=== PATIENT | male | born 1925 | race Caucasian/White ===

== ENCOUNTER → 2016-05-20 | Outpatient (CLI) | payer BC ==
[~2016-05-20] MED LIST: ACET-1256 PO; B-COCAP2 PO; BECL1AER5 NAE; BIMA0.01 OPB; CALC1TAB9 PO; CHOL100010 PO; CMD6 PO; FRS/40 PO; MAGN400T6 PO; POTA20TA16 PO; SIMV20TA2 PO; UBIQ1CAP8 PO; [UNRECOGNIZED DRUG - CODE] TOP
[2016-05-20 13:23] LABS: BASO % 0.2 %; BASO ABS # 0.01 K/uL (0-0.2); COMPLETE YES; EOS % 4.7 %; HEMATOCRIT 38.4 % (42-52); LYMPH % 36.4 %; LYMPH ABS # 1.95 K/uL (1.2-3.4); MEAN CELL VOLUME 93.4 fL (80-100); MEAN CORPUSCULAR HEMOGLOBIN 32.4 pg (25-34); MEAN CORPUSCULAR HGB CONC 34.6 g/dl (32-36); MONO % 9.9 %; NEUT % 48.8 %; PLATELET COUNT 125 K/uL (130-400); RED BLOOD COUNT 4.11 M/uL (4.7-6.1); WHITE BLOOD COUNT 5.36 K/uL (4.8-10.8)
[2016-05-20 13:33] LABS: ESTIMATED AVERAGE GLUCOSE 111 mg/dl; HA1C FLAG Normal (Normal)
[2016-05-20 13:50] LABS: ALT/SGPT 31 U/L (12-78); AST/SGOT 28 U/L (15-37); BLOOD UREA NITROGEN 27 mg/dl (7-18); BUN/CREATININE RATIO 16.1 (10-20); CALCIUM 8.6 mg/dl (8.5-10.1); CARBON DIOXIDE 27 mmol/L (21-32); CHLORIDE 110 mmol/L (98-107); CHOLESTEROL 101 mg/dl (0-200); GLUCOSE 73 mg/dl (70-99); SODIUM 145 mmol/L (136-145)
[2016-05-20 13:59] LABS: ALB/GLOB RATIO 1.2 (0.9-2); ALKALINE PHOSPHATASE 72 U/L (45-117); CHOLESTEROL/HDL RATIO 2.3; HDL CHOLESTEROL 44 mg/dl; LDL CHOLESTEROL CALCULATED 47 mg/dl; TRIGLYCERIDES 52 mg/dl (0-150); VERY LOW DENSITY LIPOPROT CALC 10 mg/dl
[2016-05-23 10:23] LABS: C-REACTIVE PROT HIGHSEN 0.6 MG/L
--- NOTE | 2016-05-25 09:52 | CODING QUERY MEDICAL NECESSITY ---
SUPPORTING DIAGNOSIS NEEDED A supporting diagnosis is required for the test/procedure performed on this patient in order for us to be reimbursed by the patient's insurance. Please provide a supporting diagnosis for the following test/procedure listed below next to the test name along with your signature. *If there is no additional diagnosis for this patient that would support the following test/procedure please document that below next to the test/procedure. Test(s)/Procedure(s) that require a supporting diagnosis: DOS 05/20 * Vitamin D DIAGNOSIS: * Vitamin B12 DIAGNOSIS: * TSH DIAGNOSIS: * CRP DIAGNOSIS: Provider Signature: Date: Thank you Bonnie Porter Health Information Management Once completed, please kindly fax back to [phone] For questions please call [phone]
== END | disposition home or self-care (01) ==
LOC: C.LAB 13:00
PROVIDERS: ATTEND Family Medicine
DX: R73.09 Other abnormal glucose (principal); E55.9 Vitamin D deficiency, unspecified; D51.9 Vitamin B12 deficiency anemia, unspecified; I42.9 Cardiomyopathy, unspecified

== ENCOUNTER → 2017-02-26 | Outpatient (CLI) | payer BC ==
[~2017-02-26] MED LIST changes: -BECL1AER5 NAE
[2017-02-26 17:06] LABS: BLOOD UREA NITROGEN 31 mg/dl (7-18); BUN/CREATININE RATIO 16.9 (10-20); CARBON DIOXIDE 29 mmol/L (21-32); CHLORIDE 108 mmol/L (98-107); CREATININE 1.86 mg/dl (0.60-1.40); GLUCOSE 88 mg/dl (70-99); SODIUM 142 mmol/L (136-145)
== END | disposition home or self-care (01) ==
LOC: C.LAB1850 14:29
PROVIDERS: ATTEND Internal Medicine Cardiovascular Disease
DX: I50.9 Heart failure, unspecified (principal)

== ENCOUNTER 2017-06-07 21:00 | Emergency (ER) | payer BC ==
[~2017-06-07] VITALS: Ht 182.9 cm; Wt 83.6 kg
[2017-06-07 21:04] VITALS: Ht 182.9 cm; Wt 83.6 kg
[2017-06-07] MEDS ORDERED: CEFAZOLIN SOD 1000MG/7.5 ML IV PUSH IV STA (21:25)
[2017-06-07 21:54] LABS: BASO % 0.1 %; BASO ABS # 0.01 K/uL (0-0.2); EOS ABS # 0.07 K/uL (0-0.5); HEMOGLOBIN 13.4 g/dL (14.0-18.0); IG# 0.02 K/uL (0.00-0.02); LYMPH % 32.9 %; LYMPH ABS # 2.38 K/uL (1.2-3.4); MEAN CELL VOLUME 94.9 fL (80-100); MEAN CORPUSCULAR HEMOGLOBIN 32.6 pg (25-34); MEAN CORPUSCULAR HGB CONC 34.4 g/dl (32-36); MEAN PLATELET VOLUME 9.6 fL (7.4-10.4); MONO % 8.7 %; MONO ABS # 0.63 K/uL (0.11-0.59); NEUT ABS # 4.12 K/uL (1.4-6.5); PLATELET COUNT 149 K/uL (130-400); RED CELL DISTRIBUTION WIDTH CV 14.3 % (11.5-14.5); RED CELL DISTRIBUTION WIDTH SD 49.7 fL (36.4-46.3); WHITE BLOOD COUNT 7.23 K/uL (4.8-10.8)
[2017-06-07] MEDS ORDERED: CMD6 PO (22:16)
[2017-06-07] MEDS ORDERED: CHOL1000 PO (22:18)
[2017-06-07] MEDS ORDERED: MAGN500T4 PO (22:20)
[2017-06-07] MEDS ORDERED: B-CO-25 PO (22:22)
[2017-06-07 22:24] LABS: CREATININE 1.68 mg/dl (0.60-1.40)
[2017-06-07 22:25] LABS: CALCIUM 9.1 mg/dl (8.5-10.1); POTASSIUM 3.3 mmol/L (3.5-5.1)
[2017-06-07] MEDS ORDERED: IRBE-37 PO (22:25)
[2017-06-07] MEDS ORDERED: TRMCR115 TOP (22:29)
[2017-06-07] MEDS ORDERED: FLUT0.15 NAE (22:31)
[2017-06-07] MEDS ORDERED: CEPH500C PO (23:02)
--- NOTE | 2017-06-07 23:02 | EMERGENCY ROOM VISIT NOTE ---
History Report prepared by Nabeel: Ashok Cooper Under the Supervision of: Anshul Galaviz.O. First contact with patient: 21:20 Chief Complaint: SWELLING TO EXTREMITY Stated Complaint: SWELLING R AKLE AND REDNESS REFERRED BY MD History of Present Illness The patient is an 89 year old male who presents to the Emergency Room with complaints of persistent right leg infection since this morning. He states that he noticed the discoloration on his right leg this morning. He was seen at [facility] and the doctor there told him he had "blood poisoning." He denies any fevers. He denies scratching his right leg. He denies any DM. Source of History: patient Onset: since this morning Position: leg (right) Quality: other (infection) Timing: other (persistent) Associated Symptoms: No fevers Review of Systems See HPI for pertinent positives & negatives. A total of 10 systems reviewed and were otherwise negative. 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 Family History FH: asthma FH: lung disease Social History Smoking Status: Never Smoker Smokeless Tobacco Use: No Alcohol Use: none Drug Use: none Marital Status: Housing Status: lives with significant other Occupation Status: retired Current/Historical Medications Scheduled Acetaminophen (Tylenol), 500-650 MG PO PRN B-Complex W/ Folic Acid (Super B Complex Maxi), 1 TAB PO DAILY Bimatoprost (Lumigan), 1 DROP OPB HS Calcium Citrate-Vitamin D (Citracal + D3 Maximum), 600 MG PO DAILY Cephalexin Monohydrate (Keflex), 500 MG PO QID Cholecalciferol (Vitamin D3), 1,000 UNITS PO DAILY Fluticasone Propionate (Nasal) (Flonase Allergy Relief), 2 SPRAY LISA HS Irbesartan (Avapro), 1 TAB PO DAILY Magnesium Oxide (Mg Supplement (Magnesium), 500 MG PO DAILY Potassium Ext Rel (Klor-Con), 20-40 MEQ PO UD Simvastatin (Zocor), 20 MG PO QAM Ubiquinol (Ubiquinol), 100 MG PO DAILY Warfarin Sod (Coumadin), 6 MG PO DAILY Scheduled PRN Furosemide (Lasix), 40 MG PO DAILY PRN for fluid retention Triamcinolone Acet (Triamcinolone Acetonide), 1 APPLN TOP DAILY PRN for Itching Allergies Coded Allergies: Rofecoxib (Verified Allergy, Severe, hyperventalation, 06/07/17) Prednisone (Verified Allergy, Unknown, unknown, 06/07/17) Sulfa Drugs (Verified Adverse Reaction, Unknown, FACE DISTORTION 35 YRS AGO, 06/07/17) Physical Exam Vital Signs Date Time Temp Pulse Resp B/P (MAP) Pulse Ox O2 Delivery O2 Flow Rate FiO2 06/07/17 23:31 36.8 66 16 128/76 97 06/07/17 23:11 66 18 128/74 97 Room Air 06/07/17 22:06 82 16 134/68 98 Room Air 06/07/17 21:04 36.6 89 18 145/84 94 Room Air Physical Exam CONSTITUTIONAL/VITAL SIGNS: Reviewed / noted above. GENERAL: Non-toxic in appearance. INTEGUMENTARY: Warm, dry, and [place]. HEAD: Normocephalic. EYES: without scleral icterus or trauma. ENT/OROPHARYNX: clear and moist. LYMPHADENOPATHY/NECK: Is supple without lymphadenopathy or meningismus. RESPIRATORY: Lungs clear and equal. CARDIOVASCULAR: Regular rate and rhythm. GI/ABDOMEN: Soft and nontender. No organomegaly or pulsatile mass. No rebound or guarding. Normal bowel sounds. EXTREMITIES: Warm and well perfused. Right leg: mild erythema just superior to right ankle. Increased warmth and mild swelling. There is a small flesh wound to the superior aspect of the erythematous area. BACK: No CVA tenderness. NEUROLOGICAL: Intact without focal deficits. PSYCHIATRIC: normal affect. MUSCULOSKELETAL: Normally developed with good muscle tone. Medical Decision & Procedures Laboratory Results 06/07/17 21:42 Red Blood Count 4.11, Mean Corpuscular Volume 94.9, Mean Corpuscular Hemoglobin 32.6, Mean Corpuscular Hemoglobin Concent 34.4, Mean Platelet Volume 9.6, Neutrophils (%) (Auto) 57.0, Lymphocytes (%) (Auto) 32.9, Monocytes (%) (Auto) 8.7, Eosinophils (%) (Auto) 1.0, Basophils (%) (Auto) 0.1, Neutrophils # (Auto) 4.12, Lymphocytes # (Auto) 2.38, Monocytes # (Auto) 0.63, Eosinophils # (Auto) 0.07, Basophils # (Auto) 0.01 06/07/17 21:42 Test 06/07/17 21:42 White Blood Count 7.23 K/uL (4.8-10.8) Red Blood Count 4.11 M/uL (4.7-6.1) Hemoglobin 13.4 g/dL (14.0-18.0) Hematocrit 39.0 % (42-52) Mean Corpuscular Volume 94.9 fL (80-100) Mean Corpuscular Hemoglobin 32.6 pg (25-34) Mean Corpuscular Hemoglobin Concent 34.4 g/dl (32-36) Platelet Count 149 K/uL (130-400) Mean Platelet Volume 9.6 fL (7.4-10.4) Neutrophils (%) (Auto) 57.0 % Lymphocytes (%) (Auto) 32.9 % Monocytes (%) (Auto) 8.7 % Eosinophils (%) (Auto) 1.0 % Basophils (%) (Auto) 0.1 % Neutrophils # (Auto) 4.12 K/uL (1.4-6.5) Lymphocytes # (Auto) 2.38 K/uL (1.2-3.4) Monocytes # (Auto) 0.63 K/uL (0.11-0.59) Eosinophils # (Auto) 0.07 K/uL (0-0.5) Basophils # (Auto) 0.01 K/uL (0-0.2) RDW Standard Deviation 49.7 fL (36.4-46.3) RDW Coefficient of Variation 14.3 % (11.5-14.5) Immature Granulocyte % (Auto) 0.3 % Immature Granulocyte # (Auto) 0.02 K/uL (0.00-0.02) Anion Gap 7.0 mmol/L (3-11) Est Creatinine Clear Calc Drug Dose 32.7 ml/min Estimated GFR () 41.1 Estimated GFR (Non- 35.5 BUN/Creatinine Ratio 14.9 (10-20) Calcium Level 9.1 mg/dl (8.5-10.1) Laboratory results as stated above per my review. Medications Administered Medications (Trade) Dose Ordered Sig/Gustavo Route Start Time Stop Time Status Last Admin Dose Admin Cefazolin Sodium (Cefazolin 1000mg Iv Push) 2,000 mg NOW STAT IV 06/07/17 21:25 06/07/17 21:33 DC 06/07/17 21:53 2,000 MG ED Course 2121: Previous medical records were reviewed. The patient was evaluated in room C12A. A complete history and physical examination was performed. 2134: Ordered Cefazolin Sodium 2,000 mg IV 2305: I reassessed the patient at this time. I discussed the results and treatment plan with the patient. I answered all pertaining questions that he had. He expressed understanding and verbalized agreement. The patient will be discharged home. Medical Decision Prior records reviewed and summarized as above. Triage Nursing notes reviewed. The patient's history was concerning for swelling and redness of the skin. Differential diagnosis: Etiologies such as cellulitis, abscess, MRSA infection, DVT, necrotizing fasciitis, dermatitis, drug eruption, as well as others were entertained.. This is an 89-year-old male who presents to the ED with some swelling to his right ankle. He was sent from at [facility] for concerns about infection. The patient has some erythema in the right ankle region medially and anteriorly. The superior aspect contains a small scratch or scrape. He states that his symptoms started about 6 hours ago. He has not had any systemic symptoms. The patient's blood work was unremarkable other than some renal insufficiency. The patient was given IV Ancef and discharged on Keflex. He was told to follow-up with his PCP. Medication Reconcilliation Current Medication List: was personally reviewed by me Blood Pressure Screening Patient's blood pressure: Elevated blood pressure Blood pressure disposition: Elevated BP felt to be situational Impression Primary Impression: Cellulitis, leg Scribe Attestation The scribe's documentation has been prepared under my direction and personally reviewed by me in its entirety. I confirm that the note above accurately reflects all work, treatment, procedures, and medical decision making performed by me. Departure Information Dispostion Home / Self-Care Prescriptions Cephalexin Monohydrate (Keflex) 500 Mg Cap 500 MG PO QID, #40 CAP Prov: Neftaly Kimball D.O. 06/07/17 Referrals Pandolph, Cyril J.,M.D. (PCP) Forms HOME CARE DOCUMENTATION FORM, IMPORTANT VISIT INFORMATION, WORK / SCHOOL INSTRUCTIONS Patient Instructions My [facility] Additional Instructions Follow-up with your doctor for further care and evaluation in 1-2 days. Return to the emergency department for worsening or new symptoms or any concerns. You have been examined and treated today on an emergency basis only. This is not a substitute for, or an effort to provide, complete comprehensive medical care. It is impossible to recognize and treat all injuries or illnesses in a single emergency department visit. It is therefore important that you follow up closely with your doctor. Call as soon as possible for an appointment. Keflex as prescribed.
[2017-06-07 23:31] VITALS: BP 128/76; PULSE 66; TEMP 36.8; O2SAT 97
== END 2017-06-07 23:25 | disposition home or self-care (01) ==
LOC: C.EDB 21:02 → C.EDC 23:25
DX: L03.115 Cellulitis of right lower limb (principal); I48.91 Unspecified atrial fibrillation; N18.9 Chronic kidney disease, unspecified; Z82.5 Family history of asthma and other chronic lower respiratory diseases; Z79.01 Long term (current) use of anticoagulants; Z51.81 Encounter for therapeutic drug level monitoring; Z88.8 Allergy status to other drugs, medicaments and biological substances

== ENCOUNTER → 2017-06-11 | Outpatient (CLI) | payer BC ==
[~2017-06-11] MED LIST changes: +B-CO-25 PO; -B-COCAP2 PO; +CEPH500C PO; +CHOL1000 PO; -CHOL100010 PO; +FLUT0.15 NAE; +IRBE-37 PO; -MAGN400T6 PO; +MAGN500T4 PO; +TRMCR115 TOP; -[UNRECOGNIZED DRUG - CODE] TOP
[2017-06-11 14:38] LABS: BASO % 0.1 %; BASO ABS # 0.01 K/uL (0-0.2); EOS ABS # 0.07 K/uL (0-0.5); HEMATOCRIT 36.6 % (42-52); HEMOGLOBIN 12.5 g/dL (14.0-18.0); IG# 0.01 K/uL (0.00-0.02); LYMPH % 38.5 %; LYMPH ABS # 2.57 K/uL (1.2-3.4); MEAN CELL VOLUME 97.1 fL (80-100); MEAN CORPUSCULAR HEMOGLOBIN 33.2 pg (25-34); MEAN CORPUSCULAR HGB CONC 34.2 g/dl (32-36); MEAN PLATELET VOLUME 10.4 fL (7.4-10.4); MONO % 9.1 %; MONO ABS # 0.61 K/uL (0.11-0.59); NEUT % 51.2 %; PLATELET COUNT 141 K/uL (130-400); RED CELL DISTRIBUTION WIDTH CV 14.2 % (11.5-14.5); RED CELL DISTRIBUTION WIDTH SD 50.8 fL (36.4-46.3); WHITE BLOOD COUNT 6.67 K/uL (4.8-10.8)
[2017-06-11 15:22] LABS: ALBUMIN 3.4 gm/dl (3.4-5.0); ALKALINE PHOSPHATASE 66 U/L (45-117); ALT/SGPT 22 U/L (12-78); AST/SGOT 24 U/L (15-37); BLOOD UREA NITROGEN 27 mg/dl (7-18); CALCIUM 8.8 mg/dl (8.5-10.1); CARBON DIOXIDE 31 mmol/L (21-32); CHOLESTEROL 102 mg/dl (0-200); CREATININE 1.61 mg/dl (0.60-1.40); GLUCOSE 75 mg/dl (70-99); POTASSIUM 3.6 mmol/L (3.5-5.1); SODIUM 141 mmol/L (136-145); TOTAL PROTEIN 6.5 gm/dl (6.4-8.2); TRANSFERRIN 278 mg/dl (200-360); URIC ACID 6.4 mg/dl (2.6-7.2)
[2017-06-11 15:31] LABS: LDL CHOLESTEROL CALCULATED 47 mg/dl
[2017-06-12 07:16] LABS: HEMOGLOBIN A1C 5.6 % (4.5-5.6)
== END | disposition home or self-care (01) ==
LOC: C.LAB 12:55
PROVIDERS: ATTEND Family Medicine
DX: R73.09 Other abnormal glucose (principal); E55.9 Vitamin D deficiency, unspecified; D51.9 Vitamin B12 deficiency anemia, unspecified; E78.9 Disorder of lipoprotein metabolism, unspecified; R53.83 Other fatigue

== ENCOUNTER → 2017-06-27 | Outpatient (CLI) | payer BC ==
--- NOTE | 2017-06-27 13:56 | DIAGNOSTIC IMAGING REPORT ---
RIGHT LOWER EXTREMITY VENOUS DOPPLER CLINICAL HISTORY: Right lower extremity pain and swelling. COMPARISON STUDY: Right lower extremity venous Doppler September 16 2007. TECHNIQUE: Sonography of the deep venous system of the right lower extremity was performed. Compression and augmentation were evaluated. FINDINGS: The common femoral, superficial femoral and popliteal veins were compressible. Augmentation was normal. Flow was shown within the deep calf vessels. Right calf edema was noted. No discrete fluid collection was identified. IMPRESSION: No evidence of deep venous thrombus within the right lower extremity. Electronically signed by: Ab Lang M.D. 06/27/2017 1:55 PM Dictated Date/Time: 06/27/2017 1:54 PM
== END | disposition home or self-care (01) ==
LOC: C.ULTRBC 13:10
PROVIDERS: ATTEND Family Medicine
DX: M79.604 Pain in right leg (principal); M79.89 Other specified soft tissue disorders

== ENCOUNTER 2017-07-08 12:04 | Inpatient (IN) | payer BC, OTHER ==
[~2017-07-08] VITALS: Ht 182.9 cm; Wt 87.0 kg
[~2017-07-08 12:04] MED LIST changes: +POTA-639 PO; -POTA20TA16 PO
[2017-07-08 12:07] VITALS: Ht 182.9 cm; Wt 87.0 kg
[2017-07-08] MEDS ORDERED: DOXY100C41 PO (12:42)
[2017-07-08] MEDS ORDERED: CPR/500 PO (12:42)
[2017-07-08] MEDS ORDERED: PIPERACILLIN/TAZOBACTAM 4.5 GM/100ML D5W IV STA (12:59)
[2017-07-08] MEDS ORDERED: DAPTOmycin IV 522 MG in SODIUM CHLORIDE 0.9% 50ML 50 ML IV STA (12:59)
--- NOTE | 2017-07-08 13:04 | EMERGENCY ROOM VISIT NOTE ---
History Report prepared by Nabeel: Ramon Valadez Under the Supervision of: Dr. Neftaly Adam M.D. First contact with patient: 12:53 Chief Complaint: INFECTION Stated Complaint: INFECTION ON RIGHT ANKLE SPREAD ABOVE KNEE Nursing Triage Summary: Pt has right lower leg redness, swelling, and pain. Slightly warm to touch. Pt states he has been being treated for infection of right leg for awhile, taking Doxycycline and Cipro currently. Last week he had an US to rule out DVT which was negative. Takes Coumadin. History of Present Illness The patient is a 89 year old male who presents to the Emergency Room with complaints of a worsening right leg infection that began a month ago. The patient states that for the last month his leg has been erythematous, swollen, and painful. He reports that he saw his physician and has been placed on three antibiotics for the past month, including Doxycycline which he was placed on last week. He reports his PCP told him he would need a culture done if the antibiotics did not work. The patient states he also had an ultrasound done last week which was negative for DVT. He reports that his right leg worsened overnight and has spread above his knee. Source of History: patient Onset: a month ago Position: leg (right) Quality: other (erythema) Timing: worsening Modifying Factors (Relieving): other ( Doxycycline) Note: Associated symptoms: right leg swelling, right leg pain, right leg warmth. Review of Systems See HPI for pertinent positives & negatives. A total of 10 systems reviewed and were otherwise negative. 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 Family History FH: asthma FH: lung disease Social History Smoking Status: Never Smoker Alcohol Use: none Drug Use: none Marital Status: Housing Status: lives with significant other Occupation Status: retired Current/Historical Medications Scheduled Acetaminophen (Tylenol), 500-650 MG PO PRN B-Complex W/ Folic Acid (Super B Complex Maxi), 1 TAB PO DAILY Bimatoprost (Lumigan), 1 DROP OPB HS Calcium Citrate-Vitamin D (Citracal + D3 Maximum), 600 MG PO DAILY Cephalexin Monohydrate (Keflex), 500 MG PO QID Cholecalciferol (Vitamin D3), 1,000 UNITS PO DAILY Ciprofloxacin (Ciprofloxacin HCl), 500 MG PO BID Doxycycline (Monohydrate) (Monodox), 100 MG PO BID Fluticasone Propionate (Nasal) (Flonase Allergy Relief), 2 SPRAY LISA HS Irbesartan (Avapro), 1 TAB PO DAILY Magnesium Oxide (Mg Supplement (Magnesium), 500 MG PO DAILY Potassium Ext Rel (Klor-Con), 20-40 MEQ PO UD Simvastatin (Zocor), 20 MG PO QAM Ubiquinol (Ubiquinol), 100 MG PO DAILY Warfarin Sod (Coumadin), 6 MG PO DAILY Scheduled PRN Furosemide (Lasix), 40 MG PO DAILY PRN for fluid retention Triamcinolone Acet (Triamcinolone Acetonide), 1 APPLN TOP DAILY PRN for Itching Allergies Coded Allergies: Rofecoxib (Verified Allergy, Severe, hyperventalation, 07/08/17) Prednisone (Verified Allergy, Unknown, unknown, 07/08/17) Sulfa Drugs (Verified Adverse Reaction, Unknown, FACE DISTORTION 35 YRS AGO, 07/08/17) Physical Exam Vital Signs Date Time Temp Pulse Resp B/P (MAP) Pulse Ox O2 Delivery O2 Flow Rate FiO2 07/08/17 17:23 73 16 131/87 93 07/08/17 17:01 131/87 07/08/17 17:00 73 16 93 Room Air 07/08/17 16:31 129/78 07/08/17 16:30 65 14 94 Room Air 07/08/17 16:06 64 16 129/76 94 Room Air 07/08/17 15:02 57 20 129/72 92 Room Air 07/08/17 14:26 49 07/08/17 14:25 Room Air 07/08/17 14:12 69 20 120/68 94 Room Air 07/08/17 12:07 36.3 77 18 122/76 96 Room Air Physical Exam GENERAL: Awake, alert, well-appearing, in no acute distress HENT: Normocephalic, atraumatic. Oropharynx unremarkable. EYES: Normal conjunctiva. Sclera non-icteric. NECK: Supple. No nuchal rigidity. FROM. No JVD. RESPIRATORY: Clear to auscultation. CARDIAC: Regular rate, normal rhythm. Extremities warm and well perfused. Pulses equal. ABDOMEN: Soft, non-distended. No tenderness to palpation. No rebound or guarding. No masses. RECTAL: Deferred. MUSCULOSKELETAL: Chest examination reveals no tenderness. The back is symmetrical on inspection without obvious abnormality. There is no CVA tenderness to palpation. No joint edema. LOWER EXTREMITIES: Area of cellulitis extending up right lower extremity about three [address] way up the thigh. Chronic venous stasis changes bilaterally. NEURO: Normal sensorium. No sensory or motor deficits noted. SKIN: No rash or jaundice noted. Medical Decision & Procedures ER Provider Diagnostic Interpretation: Radiology results as stated below per my review and radiologist interpretation: R VENOUS DOPP LOWER EXT UNILAT CLINICAL HISTORY: 89 years-old Male presenting with Pt c/o Rt LE swelling. TECHNIQUE: Real-time grayscale and color and spectral Doppler ultrasound imaging of the veins of the right lower extremity was performed. Compression and augmentation were also utilized. COMPARISON: 06/27/2017. FINDINGS: Right: Common femoral vein: Patent. Greater saphenous vein: Patent. Deep femoral vein: Patent. Femoral vein: Patent. Popliteal vein: Patent. Calf veins: Patent. Other: Significant lower extremity subcutaneous edema. IMPRESSION: 1. No evidence of deep venous thrombosis. 2. Significant subcutaneous edema. Electronically signed by: Martinez Nguyen M.D. 07/08/2017 3:33 PM Dictated Date/Time: 07/08/2017 3:32 PM Laboratory Results 07/08/17 13:30 Red Blood Count 3.81, Mean Corpuscular Volume 96.1, Mean Corpuscular Hemoglobin 31.8, Mean Corpuscular Hemoglobin Concent 33.1, Mean Platelet Volume 10.5, Neutrophils (%) (Auto) 49.8, Lymphocytes (%) (Auto) 39.1, Monocytes (%) (Auto) 8.6, Eosinophils (%) (Auto) 2.1, Basophils (%) (Auto) 0.3, Neutrophils # (Auto) 3.37, Lymphocytes # (Auto) 2.65, Monocytes # (Auto) 0.58, Eosinophils # (Auto) 0.14, Basophils # (Auto) 0.02 07/08/17 13:30 Test 07/08/17 13:30 White Blood Count 6.77 K/uL (4.8-10.8) Red Blood Count 3.81 M/uL (4.7-6.1) Hemoglobin 12.1 g/dL (14.0-18.0) Hematocrit 36.6 % (42-52) Mean Corpuscular Volume 96.1 fL (80-100) Mean Corpuscular Hemoglobin 31.8 pg (25-34) Mean Corpuscular Hemoglobin Concent 33.1 g/dl (32-36) Platelet Count 125 K/uL (130-400) Mean Platelet Volume 10.5 fL (7.4-10.4) Neutrophils (%) (Auto) 49.8 % Lymphocytes (%) (Auto) 39.1 % Monocytes (%) (Auto) 8.6 % Eosinophils (%) (Auto) 2.1 % Basophils (%) (Auto) 0.3 % Neutrophils # (Auto) 3.37 K/uL (1.4-6.5) Lymphocytes # (Auto) 2.65 K/uL (1.2-3.4) Monocytes # (Auto) 0.58 K/uL (0.11-0.59) Eosinophils # (Auto) 0.14 K/uL (0-0.5) Basophils # (Auto) 0.02 K/uL (0-0.2) RDW Standard Deviation 47.1 fL (36.4-46.3) RDW Coefficient of Variation 13.5 % (11.5-14.5) Immature Granulocyte % (Auto) 0.1 % Immature Granulocyte # (Auto) 0.01 K/uL (0.00-0.02) Prothrombin Time 21.5 SECONDS (9.0-12.0) Prothromb Time International Ratio 2.1 (0.9-1.1) Anion Gap 5.0 mmol/L (3-11) Est Creatinine Clear Calc Drug Dose 30.4 ml/min Estimated GFR () 37.6 Estimated GFR (Non- 32.4 BUN/Creatinine Ratio 13.3 (10-20) Calcium Level 8.2 mg/dl (8.5-10.1) Total Bilirubin 0.9 mg/dl (0.2-1) Direct Bilirubin 0.2 mg/dl (0-0.2) Aspartate Amino Transf (AST/SGOT) 31 U/L (15-37) Alanine Aminotransferase (ALT/SGPT) 24 U/L (12-78) Alkaline Phosphatase 73 U/L (45-117) Total Protein 6.5 gm/dl (6.4-8.2) Albumin 3.4 gm/dl (3.4-5.0) Lipase 160 U/L (73-393) Labs reviewed by ED physician. Medications Administered Medications (Trade) Dose Ordered Sig/Gustavo Route Start Time Stop Time Status Last Admin Dose Admin Piperacillin Sod/ Tazobactam Sod (Zosyn Iv) 4.5 gm NOW STAT IV 07/08/17 12:59 07/08/17 13:04 DC 07/08/17 14:59 4.5 GM Daptomycin 522 mg/ Sodium Chloride 60.44 ml @ 100 mls/hr NOW STAT IV 07/08/17 12:59 07/08/17 13:35 DC 07/08/17 14:15 100 MLS/HR ECG Per My Interpretation Indication: other (cellulitis) Rate (beats per minute): 65 Rhythm: normal sinus Findings: other (No ST elevation or depression) ED Course 1255: Past medical records reviewed. The patient was evaluated in room B04B. A complete history and physical examination was performed. 1259: Ordered Daptomycin 522 mg/Sodium Chloride 60.44 ml @ 100 mls/hr IV, Zosyn 4.5 gm IV. 1512: I discussed the patient's case [facility] e [facility]ca[facility] the patient's condition and agrees to accept the patient. The patient will be further evaluated. 1518: I reevaluated the patient and updated him on his results. I discussed the treatment plan, which he understands and agrees to. The patient will be further evaluated. Medical Decision Prior records reviewed and summarized as above. Triage Nursing notes reviewed. The patient's history was concerning for swelling and redness of the skin. Differential diagnosis: Etiologies such as cellulitis, abscess, MRSA infection, DVT, necrotizing fasciitis, dermatitis, drug eruption, as well as others were entertained. This is an 89-year-old male who presents emergency department after being on antibiotics 3 times in the past month for cellulitis of his right lower extremity. Today the cellulitis is worse and extends up past his knee. The patient was sent for an ultrasound of his leg which did not show any evidence of DVT. He has a therapeutic INR level. Because of the multiple antibiotic failures I did discuss the case with the attending agreed to admit the patient. Patient was given Zosyn and Daptomycin here in emergency department. Medication Reconcilliation Current Medication List: was personally reviewed by me Blood Pressure Screening Patient's blood pressure: Normal blood pressure Consults Time Called: 1508 Consulting Physician: Evan Barrera Hospitalist Returned Call: 1512 I discussed the patients case with Evan Barrera Hospitalist. He understands the patients condition and agrees to accept the patient. The patient will be further evaluated. Impression Primary Impression: Cellulitis Scribe Attestation The scribe's documentation has been prepared under my direction and personally reviewed by me in its entirety. I confirm that the note above accurately reflects all work, treatment, procedures, and medical decision making performed by me. Departure Information Dispostion Being Evaluated By Hospitalist Referrals Cyril Hardin M.D. (PCP) Patient Instructions My [facility] Problem Qualifiers Primary Impression: Cellulitis Site of cellulitis: extremity Site of cellulitis of extremity: lower extremity Laterality: right Qualified Codes: L03.115 - Cellulitis of right lower limb
[2017-07-08 14:15] LABS: BASO % 0.3 %; BASO ABS # 0.02 K/uL (0-0.2); EOS % 2.1 %; EOS ABS # 0.14 K/uL (0-0.5); HEMATOCRIT 36.6 % (42-52); HEMOGLOBIN 12.1 g/dL (14.0-18.0); IG# 0.01 K/uL (0.00-0.02); LYMPH % 39.1 %; LYMPH ABS # 2.65 K/uL (1.2-3.4); MEAN CELL VOLUME 96.1 fL (80-100); MEAN CORPUSCULAR HEMOGLOBIN 31.8 pg (25-34); MEAN CORPUSCULAR HGB CONC 33.1 g/dl (32-36); MEAN PLATELET VOLUME 10.5 fL (7.4-10.4); MONO % 8.6 %; MONO ABS # 0.58 K/uL (0.11-0.59); NEUT % 49.8 %; NEUT ABS # 3.37 K/uL (1.4-6.5); PLATELET COUNT 125 K/uL (130-400); RED CELL DISTRIBUTION WIDTH CV 13.5 % (11.5-14.5); RED CELL DISTRIBUTION WIDTH SD 47.1 fL (36.4-46.3); WHITE BLOOD COUNT 6.77 K/uL (4.8-10.8)
[2017-07-08 14:26] LABS: INR 2.1 (0.9-1.1)
[2017-07-08 14:35] LABS: ALBUMIN 3.4 gm/dl (3.4-5.0); CALCIUM 8.2 mg/dl (8.5-10.1); CREATININE 1.81 mg/dl (0.60-1.40); POTASSIUM 3.8 mmol/L (3.5-5.1)
[2017-07-08 14:38] LABS: TOTAL PROTEIN 6.5 gm/dl (6.4-8.2)
--- NOTE | 2017-07-08 15:34 | DIAGNOSTIC IMAGING REPORT ---
R VENOUS DOPP LOWER EXT UNILAT CLINICAL HISTORY: 89 years-old Male presenting with Pt c/o Rt LE swelling. TECHNIQUE: Real-time grayscale and color and spectral Doppler ultrasound imaging of the veins of the right lower extremity was performed. Compression and augmentation were also utilized. COMPARISON: 06/27/2017. FINDINGS: Right: Common femoral vein: Patent. Greater saphenous vein: Patent. Deep femoral vein: Patent. Femoral vein: Patent. Popliteal vein: Patent. Calf veins: Patent. Other: Significant lower extremity subcutaneous edema. IMPRESSION: 1. No evidence of deep venous thrombosis. 2. Significant subcutaneous edema. Electronically signed by: Martinez Nguyen M.D. 07/08/2017 3:33 PM Dictated Date/Time: 07/08/2017 3:32 PM
[2017-07-08] MEDS ORDERED: ACETAMINOPHEN 325 MG TAB PO PRN (16:30)
[2017-07-08] MEDS ORDERED: POLYETHYLENE (MIRALAX) 17 GM PACK PO PRN (16:30)
[2017-07-08] MEDS ORDERED: HEPARIN SOD 5000 UNIT/0.5 ML CARP SQ SCH (16:30)
[2017-07-08] MEDS ORDERED: ONDANSETRON INJ 2 MG/ML 2 ML VIAL IV PRN (16:30)
[2017-07-08] MEDS ORDERED: TRIAMCINOLONE ACET 0.1% CR 15 GM TUBE EXT PRN (16:30)
[2017-07-08] MEDS ORDERED: VANCOMYCIN CONSULT ACTIVE PRN (16:30)
[2017-07-08] MEDS ORDERED: PIPERACILL/TAZOBAC CONSULT ACTIVE PRN (16:30)
[2017-07-08] MEDS ORDERED: ALUMINUM/MAGNESIUM/SIMETH (MAALOX MAX) 30 ML UDC PO PRN (16:30)
[2017-07-08 17:00] VITALS: O2SAT 93
[2017-07-08 18:36] VITALS: BP_SYST 145; BP_SYST 166; BP_DIAS 82; BP_DIAS 85; PULSE 69; TEMP 36.5; O2SAT 98
--- NOTE | 2017-07-08 18:44 | HISTORY & PHYSICAL EXAMINATION ---
DATE OF ADMISSION: 07/08/2017 CHIEF COMPLAINT: Right lower extremity cellulitis, failed outpatient treatment. HISTORY OF PRESENT ILLNESS: An 89-year-old male with past medical history significant for hypertension, sensorineural hearing loss, sleep apnea, hyperlipidemia, CAD status post CABG, presents with right lower extremity cellulitis for last three weeks. The patient says he took three different kinds of antibiotics since last three to four weeks, but it is not working. Yesterday, the erythema has gone up to his thigh, so he came to the ER. He says his leg is slightly warm and swollen, but denies any tenderness. He is able to walk and he also goes to gym couple of times a week and he is doing okay with exercise, but redness is not getting better. He got worried and came to the hospital. Denies any fever, chills. Denies any headaches. No blurred vision. No ear drainage. No nasal drainage. No sore throat. No difficulty swallowing. No chest pain. No shortness of breath. No cough. No nausea. No vomiting. No abdominal pain. Normal bowel and bladder movements. No blood in the urine. No blood in the stools. No black stools. No rash anywhere else. Sleep is okay. Ambulates without any help. Vision is okay and uses hearing aids. Currently, resting comfortable and hemodynamically stable. ALLERGIES: ROFECOXIB, PREDNISONE AND SULFA ANTIBIOTICS. PAST MEDICAL HISTORY: As mentioned above. PAST SURGICAL HISTORY: Open heart CABG, sinus surgery. FAMILY HISTORY: Significant for father had asthma and glaucoma. Mother has heart disorder. SOCIAL HISTORY: Never smoked. Wine occasional. No drug use. Currently lives alone. REVIEW OF SYMPTOMS: As per HPI. Rest of review of systems negative. MEDICATIONS: At home: The patient currently on Tylenol 500-650 mg p.o. p.r.n., Keflex 500 mg p.o. q.i.d., Cipro 500 mg p.o. b.i.d., Lasix 40 mg p.r.n., Klor-Con 20 mEq when taking with Lasix, docusate 10 mg p.o. b.i.d., [id number] mg p.o. daily, B complex tablets daily, Lumigan 0.01% ophthalmic solution q.h.s., Citracal one tablet daily, vitamin D 1000 units p.o. daily, Flonase two sprays h.s., Avapro 75 mg one tablet daily, magnesium oxide 500 mg p.o. daily, Zocor 20 mg p.o. q.p.m., and Warfarin 6 mg p.o. daily. PHYSICAL EXAMINATION: GENERAL: The patient is of moderate build, not in distress. VITAL SIGNS: Temperature 36.3, pulse 64, respiratory rate 16, blood pressure 129/76, oxygen 94% room air. HEENT: No pallor. No icterus. Pupils equal, round, reactive to light. NECK: No JVD, no neck masses, no carotid bruits. CARDIOVASCULAR: S1, S2 heard, regular rate and rhythm, no murmur, no gallop. RESPIRATORY SYSTEM: Normal AP diameter. No accessory muscle use. No wheezing, no crackles. ABDOMEN: Soft, bowel sounds present. Nontender. No distention. CENTRAL NERVOUS SYSTEM: Cranial nerves II-XII are grossly intact. Nonfocal. EXTREMITIES: Right lower extremity, slightly swollen, erythematous and warm on palpation. Bilateral lower extremity pedal edema present. LABS: Sodium 143, potassium 3.8, chloride 109, bicarbonate 29, BUN 24, creatinine 1.8, serum glucose 94, calcium 8.2, total bilirubin 0.9, direct bilirubin 0.2, AST 31, ALT 24, alkaline phosphatase 73. WBC 6.7, hemoglobin 12.1, hematocrit 36.6, platelets 125. INR 2.1. Lower extremity Doppler, no DVT. EKG shows marked AFib at a rate of 65, nonspecific T abnormalities seen. ASSESSMENT AND PLAN: This is an 89-year-old male who presents with right lower extremity cellulitis. 1. Right lower extremity cellulitis going on for last three weeks, failed outpatient treatment with p.o. antibiotics with Cipro, Keflex and doxycycline. We will start him on IV vancomycin and IV Zosyn and follow the blood cultures and follow the response. Monitor on the medical floor. 2. History of coronary artery disease status post coronary artery bypass surgery. Continue his statin, not on aspirin or beta blockers. On ARBs. 3. History of chronic systolic and diastolic heart failure. The previous EF was 30%. The patient is on Lasix as needed and ARBs. We will monitor for any volume overload. Follows with Cardiology every six months. Last time since seen Cardiology two months ago. 4. History of hyperlipidemia. Continue statin. 5. History of atrial fibrillation. Rate under control. Not on any rate-controlling medications. On Coumadin. INR is 2.1. 6 Deep venous thrombosis prophylaxis, on Coumadin. 7. Disposition: Admit to medical floor. Expect discharge home and follow up with family doctor. PT and OT prior to discharge. Social Service to help with discharge planning. Level 1 full code only in the case of chance of recovery. MTDD
[2017-07-08] MEDS: BIMATOPROST 0.01% OP SOLN 2.5 ML BTL OPB SCH (20:35)
[2017-07-08] MEDS: SIMVASTATIN 20 MG TAB PO SCH (20:36)
[2017-07-08] MEDS: FLUTICASONE PROPIONATE NA SPR 16 GM BTL NAE SCH (20:36)
[2017-07-08] MEDS: PIPERACILL/TAZOBAC IV 3.375 GM in NSS 100ML IV SCH (20:44)
[2017-07-08] MEDS ORDERED: PIPERACILL/TAZOBAC IV 3.375 GM in DEXTROSE 5% 100ML 100 ML IV SCH (22:00)
[2017-07-08 23:31] VITALS: BP 134/75; PULSE 66; TEMP 36.4; O2SAT 94
[2017-07-09] MEDS ORDERED: VANCOMYCIN IV 1,750 MG in SODIUM CHLORIDE 0.9% 500ML 500 ML IV SCH ×2
[2017-07-09] MEDS: PIPERACILL/TAZOBAC IV 3.375 GM in NSS 100ML IV SCH ×3 (03:30→19:24)
[2017-07-09 05:45] LABS: HEMATOCRIT 34.5 % (42-52); HEMOGLOBIN 11.5 g/dL (14.0-18.0); MEAN CELL VOLUME 95.6 fL (80-100); MEAN CORPUSCULAR HEMOGLOBIN 31.9 pg (25-34); MEAN CORPUSCULAR HGB CONC 33.3 g/dl (32-36); PLATELET COUNT 109 K/uL (130-400); RED CELL DISTRIBUTION WIDTH CV 13.4 % (11.5-14.5); RED CELL DISTRIBUTION WIDTH SD 46.8 fL (36.4-46.3); WHITE BLOOD COUNT 7.71 K/uL (4.8-10.8)
[2017-07-09 05:57] LABS: INR 2.3 (0.9-1.1)
[2017-07-09 06:06] LABS: CALCIUM 8.1 mg/dl (8.5-10.1); CREATININE 1.88 mg/dl (0.60-1.40); POTASSIUM 3.8 mmol/L (3.5-5.1)
[2017-07-09 07:15] VITALS: BP 126/63; PULSE 66; TEMP 36.7; O2SAT 96
[2017-07-09 08:00] VITALS: O2SAT 96
[2017-07-09] MEDS: CHOLECALCIFEROL 400 INTER.UNIT TAB PO SCH (08:20)
[2017-07-09] MEDS: CHOLECALCIFEROL 1000 INTER.UNIT TAB PO SCH (08:20)
[2017-07-09] MEDS: CALCIUM CITRATE 950 MG TAB PO SCH (08:21)
[2017-07-09] MEDS: MAGNESIUM OXIDE 400 MG TAB PO SCH (08:21)
[2017-07-09] MEDS: VITAMIN B COMPLEX TAB PO SCH (08:21)
--- NOTE | 2017-07-09 08:52 | Pharmacy Progress Note ---
Pharmacy Abx Initial Consult Date of Service Jul 09, 2017. Pharmacy Dosing Scope Date of Consult: 07-08 Consultation requested by: Dr. Montes De Oca [facility] is consulted to initiate vancomycin/zosyn dosing therapy, order appropriate labs and adjust drug dose/frequency. Subjective The patient is a 89 year old male admitted on Jul 08, 2017 at 16:31. Objective Height (Feet): 6 Height (Inches): 0 Weight (Kilograms): 87.000 Vital Signs (Past 12Hrs) Vital Signs Past 12 Hours Date Time Temp Pulse Resp B/P (MAP) Pulse Ox O2 Delivery O2 Flow Rate FiO2 07/09/17 07:15 36.7 66 18 126/63 (84) 96 Room Air 07/09/17 00:15 Room Air 07/08/17 23:31 36.4 66 18 134/75 (94) 94 Room Air Lab Results (24Hrs) Laboratory Tests (24 Hours) Test 07/08/17 13:30 07/09/17 05:32 White Blood Count 6.77 K/uL (4.8-10.8) 7.71 K/uL (4.8-10.8) Red Blood Count 3.81 M/uL (4.7-6.1) L 3.61 M/uL (4.7-6.1) L Hemoglobin 12.1 g/dL (14.0-18.0) L 11.5 g/dL (14.0-18.0) L Hematocrit 36.6 % (42-52) L 34.5 % (42-52) L Mean Corpuscular Volume 96.1 fL (80-100) 95.6 fL (80-100) Mean Corpuscular Hemoglobin 31.8 pg (25-34) 31.9 pg (25-34) Mean Corpuscular Hemoglobin Concent 33.1 g/dl (32-36) 33.3 g/dl (32-36) Platelet Count 125 K/uL (130-400) L 109 K/uL (130-400) L Mean Platelet Volume 10.5 fL (7.4-10.4) H 10.0 fL (7.4-10.4) Neutrophils (%) (Auto) 49.8 % Lymphocytes (%) (Auto) 39.1 % Monocytes (%) (Auto) 8.6 % Eosinophils (%) (Auto) 2.1 % Basophils (%) (Auto) 0.3 % Neutrophils # (Auto) 3.37 K/uL (1.4-6.5) Lymphocytes # (Auto) 2.65 K/uL (1.2-3.4) Monocytes # (Auto) 0.58 K/uL (0.11-0.59) Eosinophils # (Auto) 0.14 K/uL (0-0.5) Basophils # (Auto) 0.02 K/uL (0-0.2) Micro Results Date/Time Source Procedure Growth Status 07/08/17 13:39 Blood Blood Culture Pending Received 07/08/17 13:30 Blood Blood Culture Pending Received Risk Factors for Resistance * Antimicrobial use within the last 90 days * previously on ciprofloxacin, keflex, and doxycycline Assessment & Plan 89 year old male admitted with a recurrent lower extremity cellulitis going on for the last 3 weeks. Has been on po antibiotics (cipro,doxy,keflex). Blood cultures x 2 are pending. Plan: Vancomycin: * Pt received daptomycin x 1 in the ED 07/08 - received LD of vancomycin 1750 (~ 20 mg/kg) last evening around ~2300 * Will start maintenance dose of vancomycin 1250 (~14 mg/kg) iv q 24 hrs to achieve an estimated trough ~15 mcg/ml (goal for cellulitis) * Estimated kinetics: t1/2~24 hrs, ke~0.029 hr-1, CrCl ~30ml/min * Will plan to obtain a trough prior to the 2300 dose on 07/11 to ensure therapeutic - note, this will be before steady state however want to ensure pt is therapeutic Zosyn: * 4.5 gm iv x 1 (ED); 3.375 gm iv q 8 hrs - will continue with dosing ( appropriate for CrCl >20 ml/min) Pharmacy will continue to follow and will adjust dose/frequency as necessary. Thank you.
--- NOTE | 2017-07-09 12:51 | Clinical Documentation Query ---
CLINICAL DOCUMENTATION QUERY 89 yo male admitted with right lower cellulitis. Patient's history shows CKD, and GFR ranges 31.0 to 37.4. In your clinical opinion is this patient being managed for: (x ) Chronic kidney disease, stage 3 ( ) Not Agree ( ) Other explanation of clinical findings (Please Explain) ( ) Unable to determine (Please Define) ( ) Need to Discuss The medical record reflects the following clinical findings, treatment, and risk factors. Clinical Indicators: As above Treatment: Serial PRPs Risk Factors: Age, HTN, [place], CHF Please clarify and document your clinical opinion in the progress notes and discharge summary. Terms such as "probable", "suspected", "likely", "questionable", "possible", or "still to be ruled out" are acceptable. IF IN AGREEMENT, YOU MUST DOCUMENT ABOVE DIAGNOSTIC STATEMENT IN DAILY PROGRESS NOTES AND DISCHARGE SUMMARY. This document is not part of the patient's record. Thank You, Joan Paredes RN [phone]
[2017-07-09 15:03] VITALS: BP 123/85; PULSE 68; TEMP 36.4; O2SAT 96
--- NOTE | 2017-07-09 16:17 | Progress Note ---
Internal Med Progress Note Date of Service: Jul 09, 2017. Provider Documentation: SUBJECTIVE: resting comfortably ambulating fine erythema in leg improving afebrile no chest pain or sob no nausea feeling fine OBJECTIVE: Vital Signs-as noted below Exam: General-alert and oriented. Not in distress ENT-normal hearing. Neck-No neck masses Lungs-CTA b/l no wheezing or crackles Heart-S1 and S2 heard irregular rhythm no murmurs Abdomen-soft Bowels sounds present no tenderness present no distension Extremities-right leg erythema and mild swelling upto posterior aspect of thigh- improving Neuro-alert and oriented moves extremities Lab data as noted below. ASSESSMENT & PLAN: : This is an 89-year-old male who presents with right lower extremity cellulitis. 1. Right lower extremity cellulitis going on for last three weeks, failed outpatient treatment with p.o. antibiotics with Cipro, Keflex and doxycycline.Started on IV vancomycin and IV Zosyn#2. Improving. continue same.blood cx pending 2. History of coronary artery disease status post coronary artery bypass surgery. Continue his statin, not on aspirin or beta blockers. On ARBs.Stable. 3. History of chronic systolic and diastolic heart failure. The previous EF was 30%. The patient is on Lasix as needed and ARBs. We will monitor for any volume overload. Follows with Cardiology every six months. Last time since seen Cardiology two months ago.Stable. 4. History of hyperlipidemia. Continue statin. 5. History of atrial fibrillation. Rate under control. Not on any rate-controlling medications. On Coumadin. INR is 2.3. 6. CKD stage 3 baseline cr 1.6 to 1.8 will f/u labs 7. Deep venous thrombosis prophylaxis, on Coumadin. 8. Disposition: Monitor in medical floor. Expect discharge home and follow up with family doctor. PT and OT prior to discharge. Social Service to help with discharge planning. Level 1 full code only in the case of chance of recovery. possible d/c on Sunday Vital Signs: Date Time Temp Pulse Resp B/P (MAP) Pulse Ox O2 Delivery O2 Flow Rate FiO2 07/09/17 15:03 36.4 68 18 123/85 (98) 96 Room Air 07/09/17 08:00 96 Room Air 07/09/17 07:15 36.7 66 18 126/63 (84) 96 Room Air 07/09/17 00:15 Room Air 07/08/17 23:31 36.4 66 18 134/75 (94) 94 Room Air 07/08/17 18:36 36.5 69 20 166/85 (112) 98 Room Air 145/82 (103) 07/08/17 17:23 73 16 131/87 93 07/08/17 17:01 131/87 07/08/17 17:00 93 07/08/17 17:00 73 16 93 Room Air 07/08/17 16:31 129/78 07/08/17 16:30 65 14 94 Room Air Lab Results: Results Past 24 Hours Test 07/09/17 05:32 Range/Units White Blood Count 7.71 4.8-10.8 K/uL Red Blood Count 3.61 4.7-6.1 M/uL Hemoglobin 11.5 14.0-18.0 g/dL Hematocrit 34.5 42-52 % Mean Corpuscular Volume 95.6 80-100 fL Mean Corpuscular Hemoglobin 31.9 25-34 pg Mean Corpuscular Hemoglobin Concent 33.3 32-36 g/dl Platelet Count 109 130-400 K/uL Mean Platelet Volume 10.0 7.4-10.4 fL RDW Standard Deviation 46.8 36.4-46.3 fL RDW Coefficient of Variation 13.4 11.5-14.5 % Neutrophils % (Manual) 25.2 % Lymphocytes % (Manual) 57.4 % Prolymphocyte % 11.3 % Monocytes % (Manual) 3.5 % Eosinophils % (Manual) 1.7 % Basophils % (Manual) 0.9 0-2 % Neutrophils # (Manual) 1.94 1.4-6.5 K/uL Total Absolute Neutrophils 1.94 1.4-6.5 K/uL Lymphocytes # (Manual) 4.43 1.2-3.4 K/uL Prolymphocyte # 0.87 0-0 K/uL Total Absolute Lymphocytes 4.43 1.2-3.4 K/uL Monocytes # (Manual) 0.27 0.11-0.59 K/uL Eosinophils # (Manual) 0.13 0-0.5 K/uL Basophils # (Manual) 0.07 0-0.2 K/uL Hypersegmented Polys 1+ Smudge Cells PRESENT Blood Smear Review Toxic Granulation 1+ Prothrombin Time 23.5 9.0-12.0 SECONDS Prothromb Time International Ratio 2.3 0.9-1.1 Sodium Level 143 136-145 mmol/L Potassium Level 3.8 3.5-5.1 mmol/L Chloride Level 111 98-107 mmol/L Carbon Dioxide Level 28 21-32 mmol/L Anion Gap 4.0 3-11 mmol/L Blood Urea Nitrogen 24 7-18 mg/dl Creatinine 1.88 0.60-1.40 mg/dl Est Creatinine Clear Calc Drug Dose 29.2 ml/min Estimated GFR () 35.9 Estimated GFR (Non- 31.0 BUN/Creatinine Ratio 12.9 10-20 Random Glucose 89 70-99 mg/dl Calcium Level 8.1 8.5-10.1 mg/dl Magnesium Level 2.2 1.8-2.4 mg/dl
[2017-07-09] MEDS: WARFARIN SOD 6 MG TAB PO SCH (16:27)
[2017-07-09] MEDS: FLUTICASONE PROPIONATE NA SPR 16 GM BTL NAE SCH (22:20)
[2017-07-09] MEDS: BIMATOPROST 0.01% OP SOLN 2.5 ML BTL OPB SCH (22:21)
[2017-07-09] MEDS: SIMVASTATIN 20 MG TAB PO SCH (22:22)
[2017-07-09] MEDS: VANCOMYCIN IV 1,250 MG in SODIUM CHLORIDE 0.9% 250ML 250 ML IV SCH (22:44)
[2017-07-10] VITALS: BP 155/76; PULSE 64; TEMP 36.3; O2SAT 96
[2017-07-10] MEDS: PIPERACILL/TAZOBAC IV 3.375 GM in NSS 100ML IV SCH ×3 (03:46→20:01)
[2017-07-10 05:12] LABS: BASO % 0.1 %; BASO ABS # 0.01 K/uL (0-0.2); EOS % 2.2 %; EOS ABS # 0.18 K/uL (0-0.5); HEMATOCRIT 34.3 % (42-52); HEMOGLOBIN 11.5 g/dL (14.0-18.0); IG# 0.01 K/uL (0.00-0.02); LYMPH % 49.6 %; LYMPH ABS # 4.03 K/uL (1.2-3.4); MEAN CELL VOLUME 95.5 fL (80-100); MEAN CORPUSCULAR HGB CONC 33.5 g/dl (32-36); MEAN PLATELET VOLUME 10.3 fL (7.4-10.4); MONO % 11.5 %; MONO ABS # 0.93 K/uL (0.11-0.59); NEUT % 36.5 %; NEUT ABS # 2.96 K/uL (1.4-6.5); PLATELET COUNT 113 K/uL (130-400); RED CELL DISTRIBUTION WIDTH CV 13.4 % (11.5-14.5); RED CELL DISTRIBUTION WIDTH SD 46.8 fL (36.4-46.3); WHITE BLOOD COUNT 8.12 K/uL (4.8-10.8)
[2017-07-10 05:31] LABS: CALCIUM 8.2 mg/dl (8.5-10.1); CREATININE 1.8 mg/dl (0.60-1.40); POTASSIUM 3.8 mmol/L (3.5-5.1)
[2017-07-10 07:11] VITALS: BP 121/64; PULSE 62; TEMP 36.8; O2SAT 93
[2017-07-10] MEDS: CALCIUM CITRATE 950 MG TAB PO SCH (08:23)
[2017-07-10] MEDS: VITAMIN B COMPLEX TAB PO SCH (08:23)
[2017-07-10] MEDS: MAGNESIUM OXIDE 400 MG TAB PO SCH (08:23)
[2017-07-10] MEDS: CHOLECALCIFEROL 1000 INTER.UNIT TAB PO SCH (08:23)
[2017-07-10] MEDS: CHOLECALCIFEROL 400 INTER.UNIT TAB PO SCH (08:24)
[2017-07-10] MEDS ORDERED: NURSING VERBAL MED ORDER ONE (10:15)
--- NOTE | 2017-07-10 12:43 | Progress Note ---
Medicine Progress Note Date & Time of Visit: Jul 10, 2017 at 12:35. Subjective Resting bedside chair, reading the newspaper, comfortable States he feels fine except for right lower leg swelling Patient right lower leg is gradually improving Denies fever chills No other symptoms Objective Last 8 Hrs Date Time Temp Pulse Resp B/P (MAP) Pulse Ox O2 Delivery O2 Flow Rate FiO2 07/10/17 08:00 Room Air 07/10/17 07:11 36.8 62 16 121/64 (83) 93 Physical Exam: General- oriented x 3, not in distress, speaks in sentences with no effort Head- atraumatic Eyes- PERRL, EOMI, anicteric ENT- oropharynx clear Neck- supple, no JVD, no adenopathy, no thyromegaly; carotids +2/2 Lungs- clear breath sounds bilaterally, no rales/wheezes Heart- regular rhythm; no murmur, no gallop, no rub appreciated Abdomen- normal bowel sounds, soft, nontender Extremities-right lower extremity: Moderate edema from the knee down with mild erythema, no warmth/tenderness, full range of motion of knee and ankle Erythema seems to be receding from demarcation line drawn Neuro- alert, oriented x 2, no other gross focal neurologic deficits Skin- warm & dry Laboratory Results: Last 24 Hours Test 07/10/17 04:57 White Blood Count 8.12 K/uL Red Blood Count 3.59 M/uL Hemoglobin 11.5 g/dL Hematocrit 34.3 % Mean Corpuscular Volume 95.5 fL Mean Corpuscular Hemoglobin 32.0 pg Mean Corpuscular Hemoglobin Concent 33.5 g/dl Platelet Count 113 K/uL Mean Platelet Volume 10.3 fL Neutrophils (%) (Auto) 36.5 % Lymphocytes (%) (Auto) 49.6 % Monocytes (%) (Auto) 11.5 % Eosinophils (%) (Auto) 2.2 % Basophils (%) (Auto) 0.1 % Neutrophils # (Auto) 2.96 K/uL Lymphocytes # (Auto) 4.03 K/uL Monocytes # (Auto) 0.93 K/uL Eosinophils # (Auto) 0.18 K/uL Basophils # (Auto) 0.01 K/uL RDW Standard Deviation 46.8 fL RDW Coefficient of Variation 13.4 % Immature Granulocyte % (Auto) 0.1 % Immature Granulocyte # (Auto) 0.01 K/uL Prothrombin Time 20.6 SECONDS Prothromb Time International Ratio 2.0 Sodium Level 142 mmol/L Potassium Level 3.8 mmol/L Chloride Level 113 mmol/L Carbon Dioxide Level 25 mmol/L Anion Gap 4.0 mmol/L Blood Urea Nitrogen 25 mg/dl Creatinine 1.80 mg/dl Est Creatinine Clear Calc Drug Dose 30.5 ml/min Estimated GFR () 37.8 Estimated GFR (Non- 32.6 BUN/Creatinine Ratio 13.9 Random Glucose 82 mg/dl Calcium Level 8.2 mg/dl Magnesium Level 2.4 mg/dl Assessment & Plan 89-year-old male with history of coronary artery disease, chronic CHF Presenting with right lower extremity 3 weeks RIGHT LOWER EXTREMITY CELLULITIS Present for the past 3 weeks Failed outpatient oral antibiotic regimen including Cipro, cephalexin, doxycycline Started on vancomycin and Zosyn Improving gradually Blood cultures negative Vancomycin and Zosyn day #3 ID will be consulted for further antibiotic regimen recommendations History of coronary artery disease status post coronary artery bypass surgery. No cardiac symptoms continue his statin, not on aspirin or beta blockers. On ARBs History of chronic systolic and diastolic heart failure. The previous EF was 30%. The patient is on Lasix as needed and ARBs. No signs of overt volume overload History of atrial fibrillation. Rate under control. Not on any rate-controlling medications. On Coumadin INR 2.0 CKD stage 3 baseline cr 1.6 to 1.8 will f/u labs Deep venous thrombosis prophylaxis, on Coumadin. Disposition Pending ID consulted for oral versus IV antibiotic regimen Anticipate discharge to home when cleared by ID Current Inpatient Medications: Current Inpatient Medications Medications (Trade) Dose Ordered Sig/Gustavo Route Start Time Stop Time Status Last Admin Dose Admin Acetaminophen (Tylenol Tab) 650 mg Q4H PRN PO 07/08/17 16:30 08/07/17 16:29 07/10/17 05:01 650 MG Al Hydrox/Mg Hydrox/Simethicone (Maalox Max Susp) 15 ml Q4H PRN PO 07/08/17 16:30 08/07/17 16:29 Polyethylene (Miralax Powder Packet) 17 gm DAILY PRN PO 07/08/17 16:30 08/07/17 16:29 Ondansetron HCl (Zofran Inj) 4 mg Q6H PRN IV 07/08/17 16:30 08/07/17 16:29 Cholecalciferol (Vitamin D Tab) 1,000 inter.unit DAILY PO 07/09/17 08:00 08/08/17 08:59 07/10/17 08:23 1,000 INTER.UNIT Fluticasone Propionate (Flonase Nasal [place]) 1 sprays HS LISA 07/08/17 21:00 08/07/17 20:59 07/09/17 22:20 1 SPRAYS Simvastatin (Zocor Tab) 20 mg HS PO 07/08/17 21:00 08/07/17 20:59 07/09/17 22:22 20 MG Triamcinolone Acetonide (Kenalog 0.1% Cream) 1 appln DAILY PRN EXT 07/08/17 16:30 08/07/17 16:29 Warfarin Sodium (Coumadin Tab) 6 mg DAILY@1600 PO 07/09/17 16:00 08/08/17 15:59 07/09/17 16:27 6 MG Vitamin B Complex (Vitamin B Complex) 1 tab DAILY PO 07/09/17 08:00 08/08/17 08:59 07/10/17 08:23 1 TAB Bimatoprost (Lumigan 0.01%) 1 drops HS OPB 07/08/17 21:00 08/07/17 20:59 07/09/17 22:21 1 DROPS Calcium Citrate (Citracal Tab) 950 mg DAILY PO 07/09/17 08:00 08/08/17 08:59 07/10/17 08:23 950 MG Miscellaneous Information (Order Awaiting Action) 1 ea QS N/A 07/09/17 00:00 08/08/17 00:00 Magnesium Oxide (Mag-Ox Tab) 400 mg DAILY PO 07/09/17 08:00 08/08/17 08:59 07/10/17 08:23 400 MG Miscellaneous Information (Consult) 1 ea UD PRN N/A 07/08/17 16:30 08/07/17 16:29 Miscellaneous Information (Consult) 1 ea UD PRN N/A 07/08/17 16:30 08/07/17 16:29 Cholecalciferol (Vitamin D Tab) 400 inter.unit DAILY PO 4/16/18 08:00 08/08/17 08:59 07/10/17 08:24 400 INTER.UNIT Piperacillin Sod/ Tazobactam Sod 3.375 gm/Sodium Chloride 115 ml @ 28.75 mls/ hr Q8H IV 07/08/17 20:00 07/18/17 19:59 07/10/17 12:04 28.75 MLS/HR Vancomycin HCl 1250 mg/Sodium Chloride 275 ml @ 125 mls/hr Q24H IV 07/09/17 23:00 07/18/17 22:59 07/09/17 22:44 125 MLS/HR Diclofenac Sodium (Voltaren 1% Top Gel) 1 appln HS PRN EXT 07/10/17 22:00 08/09/17 21:59
--- NOTE | 2017-07-10 14:29 | Progress Note ---
Progress Note Date of Service Jul 10, 2017. Progress Note ID Consult Dictated #[id number] A/P: 1. RLE Cellulitis -Continue iv abx for now -Upon d/c, can change to levaquin 500mg po daily with either doxy 100mg po bid or zyvox 600mg po bid (if insurance covers) x 10 days -He is instructed to keep leg elevated and use moisturizer -Thank you
--- NOTE | 2017-07-10 14:43 | INFECT. DISEASE CONSULTATION ---
DATE OF CONSULTATION: 07/10/2017 HISTORY OF PRESENT ILLNESS: This is an 89-year-old gentleman who was admitted with worsening right lower extremity cellulitis. He has been treated by his primary care physician as an outpatient with Cipro, Keflex and doxycycline for the majority of the past 4 weeks without significant improvement. On Sunday, he did notice erythema and swelling above the knee which was a new finding and he presented to the ER. He was subsequently admitted and started on vancomycin and Zosyn, which he has been tolerating well. He has been afebrile since admission. He has not had leukocytosis. His blood cultures are negative. He did have an ultrasound of the lower extremity in the Emergency Room, which was negative for DVT. He states he is anxious to go home tomorrow. Infectious diseases was consulted for antibiotic management. He currently is out of bed to chair. He denies any fevers or chills, chest pain, cough, shortness of breath, nausea, vomiting, diarrhea or abdominal pain. He has no pain in his leg. He states he has been able to go to the gym on an almost daily basis. During his treatment for cellulitis, his only complaint is swelling in the leg. He states this has improved somewhat since admission to the hospital. REVIEW OF SYSTEMS: His remaining review of systems is reviewed and is unremarkable. ALLERGIES: HE HAS ALLERGY TO SULFA ANTIBIOTICS. PAST MEDICAL HISTORY: Significant for hypertension, hearing loss, sleep apnea, high cholesterol, coronary artery disease with CABG. SOCIAL HISTORY: Negative for tobacco use, alcohol use or drug use. FAMILY HISTORY: Noncontributory. CURRENT MEDICATIONS: Include Voltaren gel, vancomycin, Coumadin, vitamin D, vitamin B, Citrucel, magnesium, Flonase, Zocor, eyedrops, Zosyn, Tylenol, Maalox, MiraLax, Zofran. PHYSICAL EXAMINATION: VITAL SIGNS: He is afebrile, pulse 62, respiratory rate 16, blood pressure 121/64, oxygen saturation is 93% on room air. GENERAL: He is awake, alert and oriented x3. He is in no acute distress. HEENT: Mucous membranes are moist. Extraocular muscles are intact. HEART: Regular. LUNGS: Clear bilaterally. ABDOMEN: Soft. There is lower extremity edema of the right lower extremity and mild erythema without warmth or tenderness. There are no open lesions. The erythema has receded from a line drawn upon admission. LABORATORY STUDIES: CBC: White blood cell count 8.1, hemoglobin 11.5, platelets 113. Chemistry panel: Sodium 142, potassium 3.8, chloride 113, bicarbonate 25, BUN 25, creatinine 1.8, glucose 82. Blood cultures from the 15 are negative x2 sets. Ultrasound is reviewed above. ASSESSMENT AND PLAN: Right lower extremity cellulitis. He will remain on intravenous antibiotics. He would like to be discharged tomorrow on oral antibiotics, options would include Levaquin 500 mg daily for 10 days in addition to either doxycycline 100 mg twice daily or Zyvox 600 mg twice daily if insurance approves this. Thank you for this consultation.
[2017-07-10 14:58] VITALS: BP 127/87; PULSE 71; TEMP 36.7; O2SAT 94
[2017-07-10] MEDS: WARFARIN SOD 6 MG TAB PO SCH (16:00)
[2017-07-10] MEDS ORDERED: DICLOFENAC SOD 1% GEL 100 GM TUBE EXT PRN (22:00)
[2017-07-10] MEDS ORDERED: DICLOFENAC SOD 1% GEL 100 GM TUBE EXT SCH (22:00)
[2017-07-10] MEDS: FLUTICASONE PROPIONATE NA SPR 16 GM BTL NAE SCH (22:37)
[2017-07-10] MEDS: BIMATOPROST 0.01% OP SOLN 2.5 ML BTL OPB SCH (22:37)
[2017-07-10] MEDS: VANCOMYCIN IV 1,250 MG in SODIUM CHLORIDE 0.9% 250ML 250 ML IV SCH (22:38)
[2017-07-10] MEDS: SIMVASTATIN 20 MG TAB PO SCH (22:38)
[2017-07-11 00:12] VITALS: BP 117/72; PULSE 63; TEMP 36.6; O2SAT 97
[2017-07-11] MEDS: PIPERACILL/TAZOBAC IV 3.375 GM in NSS 100ML IV SCH ×2 (04:44→11:59)
[2017-07-11 06:43] LABS: HEMATOCRIT 31.9 % (42-52); MEAN CELL VOLUME 94.9 fL (80-100); MEAN CORPUSCULAR HEMOGLOBIN 32.7 pg (25-34); MEAN CORPUSCULAR HGB CONC 34.5 g/dl (32-36); MEAN PLATELET VOLUME 10.1 fL (7.4-10.4); PLATELET COUNT 101 K/uL (130-400); RED CELL DISTRIBUTION WIDTH CV 13.4 % (11.5-14.5); RED CELL DISTRIBUTION WIDTH SD 46.6 fL (36.4-46.3); WHITE BLOOD COUNT 7.39 K/uL (4.8-10.8)
[2017-07-11 07:11] VITALS: BP 133/74; PULSE 64; TEMP 36.5; O2SAT 93
[2017-07-11 07:11] LABS: CALCIUM 8.4 mg/dl (8.5-10.1); CREATININE 1.75 mg/dl (0.60-1.40); POTASSIUM 3.6 mmol/L (3.5-5.1)
[2017-07-11] MEDS ORDERED: SODIUM CHLORIDE 0.65% NA SOLN 45 ML (OCEAN) ONE (07:52)
[2017-07-11] MEDS: CHOLECALCIFEROL 400 INTER.UNIT TAB PO SCH (07:57)
[2017-07-11] MEDS: CHOLECALCIFEROL 1000 INTER.UNIT TAB PO SCH (07:57)
[2017-07-11] MEDS: MAGNESIUM OXIDE 400 MG TAB PO SCH (07:58)
[2017-07-11] MEDS: VITAMIN B COMPLEX TAB PO SCH (07:58)
[2017-07-11] MEDS: CALCIUM CITRATE 950 MG TAB PO SCH (07:58)
[2017-07-11 08:16] LABS: BASO % 0.1 %; BASO ABS # 0.01 K/uL (0-0.2); EOS % 2.6 %; EOS ABS # 0.19 K/uL (0-0.5); IG# 0.01 K/uL (0.00-0.02); LYMPH % 51.2 %; LYMPH ABS # 3.78 K/uL (1.2-3.4); MONO % 8.1 %; NEUT % 37.9 %
[2017-07-11 11:56] VITALS: BP 133/74; PULSE 64; TEMP 36.5; O2SAT 93
--- NOTE | 2017-07-11 12:16 | Progress Note ---
Medicine Progress Note Date & Time of Visit: Jul 11, 2017 at 12:11. Subjective Seen resting bedside chair, comfortable States his right lower leg continues to feel better Swelling is gradually coming down as well as the redness No pain on the knee or ankle, ambulating with no problems denies other symptoms States he is ready and would like to be discharged today Objective Last 8 Hrs Date Time Temp Pulse Resp B/P (MAP) Pulse Ox O2 Delivery O2 Flow Rate FiO2 07/11/17 11:56 36.5 64 18 93 Room Air 07/11/17 08:00 Room Air 07/11/17 07:11 36.5 64 18 133/74 (93) 93 Physical Exam: General- oriented x 3, not in distress, speaks in sentences with no effort Eyes-anicteric Neck- supple, no JVD Lungs- clear breath sounds bilaterally Heart- regular rhythm; no murmur, normal rate Abdomen- normal bowel sounds, soft, nontender Extremities-right lower extremity: Mild to moderate edema from the knee down improving, erythema resolved, no warmth/tenderness, full range of motion of knee and ankle Neuro- alert, oriented x 2, no other gross focal neurologic deficits Skin- warm & dry Laboratory Results: Last 24 Hours Test 07/11/17 06:16 White Blood Count 7.39 K/uL Red Blood Count 3.36 M/uL Hemoglobin 11.0 g/dL Hematocrit 31.9 % Mean Corpuscular Volume 94.9 fL Mean Corpuscular Hemoglobin 32.7 pg Mean Corpuscular Hemoglobin Concent 34.5 g/dl Platelet Count 101 K/uL Mean Platelet Volume 10.1 fL Neutrophils (%) (Auto) 37.9 % Lymphocytes (%) (Auto) 51.2 % Monocytes (%) (Auto) 8.1 % Eosinophils (%) (Auto) 2.6 % Basophils (%) (Auto) 0.1 % Neutrophils # (Auto) 2.80 K/uL Lymphocytes # (Auto) 3.78 K/uL Monocytes # (Auto) 0.60 K/uL Eosinophils # (Auto) 0.19 K/uL Basophils # (Auto) 0.01 K/uL RDW Standard Deviation 46.6 fL RDW Coefficient of Variation 13.4 % Immature Granulocyte % (Auto) 0.1 % Immature Granulocyte # (Auto) 0.01 K/uL Smudge Cells PRESENT Poikilocytosis PRESENT Prothrombin Time 20.9 SECONDS Prothromb Time International Ratio 2.0 Sodium Level 144 mmol/L Potassium Level 3.6 mmol/L Chloride Level 114 mmol/L Carbon Dioxide Level 24 mmol/L Anion Gap 5.0 mmol/L Blood Urea Nitrogen 25 mg/dl Creatinine 1.75 mg/dl Est Creatinine Clear Calc Drug Dose 31.4 ml/min Estimated GFR () 39.1 Estimated GFR (Non- 33.8 BUN/Creatinine Ratio 14.3 Random Glucose 78 mg/dl Calcium Level 8.4 mg/dl Magnesium Level 2.3 mg/dl Assessment & Plan 89-year-old male with history of coronary artery disease, chronic CHF Presenting with right lower extremity 3 weeks RIGHT LOWER EXTREMITY CELLULITIS Present for the past 3 weeks prior to admission Failed outpatient oral antibiotic regimen including Cipro, cephalexin, doxycycline Started on vancomycin and Zosyn Improving gradually Blood cultures negative Given 4 days of IV vancomycin and Zosyn ID service consulted-Dr. Nadia Gill, recommend outpatient regimen Levaquin 500 mg daily and doxycycline 100 mg twice a day 10 days Follow-up with primary care physician in 3-5 days THROMBOCYTOPENIA Platelet levels noted to be in the low 100s Baseline normal Possibly from ongoing infection Repeat CBC on follow-up with primary care doctor in 3-5 days History of coronary artery disease status post coronary artery bypass surgery. No cardiac symptoms continue his statin, not on aspirin or beta blockers. History of chronic systolic and diastolic heart failure. No signs of overt volume overload History of atrial fibrillation. - Rate under control. - Not on any rate-controlling medications. On Coumadin INR 2.0 CKD stage 3 baseline cr 1.6 to 1.8 Deep venous thrombosis prophylaxis on Coumadin. Disposition Discharge to home Follow up with primary care doctor in 3-5 days Current Inpatient Medications: Current Inpatient Medications Medications (Trade) Dose Ordered Sig/Gustavo Route Start Time Stop Time Status Last Admin Dose Admin Acetaminophen (Tylenol Tab) 650 mg Q4H PRN PO 07/08/17 16:30 08/07/17 16:29 07/10/17 05:01 650 MG Al Hydrox/Mg Hydrox/Simethicone (Maalox Max Susp) 15 ml Q4H PRN PO 07/08/17 16:30 08/07/17 16:29 Polyethylene (Miralax Powder Packet) 17 gm DAILY PRN PO 07/08/17 16:30 08/07/17 16:29 Ondansetron HCl (Zofran Inj) 4 mg Q6H PRN IV 07/08/17 16:30 08/07/17 16:29 Cholecalciferol (Vitamin D Tab) 1,000 inter.unit DAILY PO 07/09/17 08:00 08/08/17 08:59 07/11/17 07:57 1,000 INTER.UNIT Fluticasone Propionate (Flonase Nasal [place]) 1 sprays HS LISA 07/08/17 21:00 08/07/17 20:59 07/10/17 22:37 1 SPRAYS Simvastatin (Zocor Tab) 20 mg HS PO 07/08/17 21:00 08/07/17 20:59 07/10/17 22:38 20 MG Triamcinolone Acetonide (Kenalog 0.1% Cream) 1 appln DAILY PRN EXT 07/08/17 16:30 08/07/17 16:29 Warfarin Sodium (Coumadin Tab) 6 mg DAILY@1600 PO 07/09/17 16:00 08/08/17 15:59 07/10/17 16:00 6 MG Vitamin B Complex (Vitamin B Complex) 1 tab DAILY PO 07/09/17 08:00 08/08/17 08:59 07/11/17 07:58 1 TAB Bimatoprost (Lumigan 0.01%) 1 drops HS OPB 07/08/17 21:00 08/07/17 20:59 07/10/17 22:37 1 DROPS Calcium Citrate (Citracal Tab) 950 mg DAILY PO 07/09/17 08:00 08/08/17 08:59 07/11/17 07:58 950 MG Miscellaneous Information (Order Awaiting Action) 1 ea QS N/A 07/09/17 00:00 08/08/17 00:00 Magnesium Oxide (Mag-Ox Tab) 400 mg DAILY PO 07/09/17 08:00 08/08/17 08:59 07/11/17 07:58 400 MG Miscellaneous Information (Consult) 1 ea UD PRN N/A 07/08/17 16:30 08/07/17 16:29 Miscellaneous Information (Consult) 1 ea UD PRN N/A 07/08/17 16:30 08/07/17 16:29 Cholecalciferol (Vitamin D Tab) 400 inter.unit DAILY PO 07/09/17 08:00 08/08/17 08:59 07/11/17 07:57 400 INTER.UNIT Piperacillin Sod/ Tazobactam Sod 3.375 gm/Sodium Chloride 115 ml @ 28.75 mls/ hr Q8H IV 07/08/17 20:00 07/18/17 19:59 07/11/17 04:44 28.75 MLS/HR Vancomycin HCl 1250 mg/Sodium Chloride 275 ml @ 125 mls/hr Q24H IV 07/09/17 23:00 07/18/17 22:59 07/10/17 22:38 125 MLS/HR Diclofenac Sodium (Voltaren 1% Top Gel) 1 appln HS PRN EXT 07/10/17 22:00 08/09/17 21:59 07/10/17 22:39 1 APPLN
[2017-07-11] MEDS ORDERED: DOXY100C41 PO (12:19)
[2017-07-11] MEDS ORDERED: LEVO1TAB34 PO (12:19)
--- NOTE | 2017-07-11 12:24 | Discharge Instructions ---
Discharge Instructions Date of Service Jul 11, 2017. Admission Reason for Admission: Cellulitis Discharge Discharge Diagnosis / Problem: RIGHT LOWER LEG CELLULITIS Discharge Goals Goal(s): Diagnostic testing, Therapeutic intervention Activity Recommendations Activity Limitations: as noted below (No heavy exertion until reevaluated by primary care physician.) Lifting Limitations: until after follow-up appointment Exercise/Sports Limitations: until after follow-up appointment . Instructions / Follow-Up Instructions / Follow-Up Please review your new medication list and follow instructions closely. You will have to finish 10 days of oral antibiotics which includes Levaquin 500 mg by mouth daily and doxycycline 100 mg by mouth twice a day. Include yogurt in your diet daily while on antibiotics and at least one week after finishing antibiotic course. Ensure adequate daily fluid intake. Call your primary care doctor or return to ER if increasing symptoms, increasing leg swelling/redness/pain, pain on the knee/ankle/feet, fever/chills , diarrhea. Follow up with her primary care doctor in 3-5 days. When you make the appointment, request the office to obtain the discharge summary from [facility] prior to to your visit. Current Hospital Diet Patient's current hospital diet: AHA Diet (Heart Healthy) Discharge Diet Recommended Diet: AHA Diet (Heart Healthy) Pending Studies Studies pending at discharge: yes List of pending studies: repeat Bloodwork c/o your primary care physician Laboratory Results Hemoglobin A1c Test 06/11/17 13:04 Range/Units Estimated Average Glucose 114 mg/dl Hemoglobin A1c 5.6 4.5-5.6 % Lipid Panel Test 06/11/17 13:04 Range/Units Triglycerides Level 53 0-150 mg/dl Cholesterol Level 102 0-200 mg/dl HDL Cholesterol 44 mg/dl Cholesterol/HDL Ratio 2.3 LDL Cholesterol, Calculated 47 mg/dl Medical Emergencies . Who to Call and When: Medical Emergencies: If at any time you feel your situation is an emergency, please call 911 immediately. . Non-Emergent Contact Non-Emergency issues call your: Primary Care Provider Call Non-Emergent contact if: you have a fever, your pain is not controlled, your pain is worsening, you have any medication questions . . "Provider Documentation" section prepared by Owen Yuan. .
--- NOTE | 2017-07-11 12:28 | Discharge Summary ---
Discharge Summary Date of Service Jul 11, 2017. Discharge Summary Admission Date: Jul 08, 2017 at 16:31 Discharge Date: Jul 11, 2017 Discharge Disposition: Home Principal Diagnosis: RIGHT LOWER EXTREMITY CELLULITIS Secondary Diagnoses/Problems: Please refer to hospital course below. Procedures: R VENOUS DOPP LOWER EXT UNILAT CLINICAL HISTORY: 89 years-old Male presenting with Pt c/o Rt LE swelling. TECHNIQUE: Real-time grayscale and color and spectral Doppler ultrasound imaging of the veins of the right lower extremity was performed. Compression and augmentation were also utilized. COMPARISON: 06/27/2017. FINDINGS: Right: Common femoral vein: Patent. Greater saphenous vein: Patent. Deep femoral vein: Patent. Femoral vein: Patent. Popliteal vein: Patent. Calf veins: Patent. Other: Significant lower extremity subcutaneous edema. IMPRESSION: 1. No evidence of deep venous thrombosis. 2. Significant subcutaneous edema. Electronically signed by: Martinez Nguyen M.D. 07/08/2017 3:33 PM Consultations: INFECTIOUS DISEASE DR. GILL Pending Studies/Follow-Up: REPEAT CBC (RE: MONITOR THROMBOCYTOPENIA). PLEASE REFER TO HOSPITAL COURSE BELOW. Medication Reconciliation New Medications: Levofloxacin (Levaquin) 500 Mg Tab 500 MG PO DAILY for 10 Days, #10 TAB 0 Refills Continued Medications: Acetaminophen (Tylenol) 500 Mg Tab 500-650 MG PO PRN, 0 Refills B-Complex W/ Folic Acid (Super B Complex Maxi) 1 Tab Tab 1 TAB PO DAILY Bimatoprost (Lumigan) 0.01 % Patricia 1 DROP OPB HS Calcium Citrate-Vitamin D (Citracal + D3 Maximum) 1 Tab Tab 600 MG PO DAILY Cholecalciferol (Vitamin D3) 1,000 Unit Tab 1000 UNITS PO DAILY for 90 Days, TAB 3 Refills Doxycycline (Monohydrate) (Monodox) 100 Mg Cap 100 MG PO BID for 10 Days, #20 TAB 0 Refills (This prescription has been renewed ) Fluticasone Propionate (Nasal) (Flonase Allergy Relief) 50 Mcg/Act Spr 2 SPRAY LISA HS Furosemide (Lasix) 40 Mg Tab 40 MG PO DAILY PRN for fluid retention, TAB take 40-80mg daily depending on body weight. <178lbs then 0mg 178-185 then 40mg 185-190 then 80 mg Irbesartan (Avapro) Unknown Strength Tab 1 TAB PO DAILY for 90 Days, TAB 3 Refills Magnesium Oxide (Mg Supplement (Magnesium) 500 Mg Tab 500 MG PO DAILY Potassium Ext Rel (Klor-Con) 20 Meq Tabcr 20-40 MEQ PO UD, 0 Refills take 20meq daiy if weight is 178-185lbs take 40meq daily if weight is 185-190lbs Simvastatin (Zocor) 20 Mg Tab 20 MG PO QAM, 0 Refills Triamcinolone Acet (Triamcinolone Acetonide) 45 Appln/15 Gm Cr 1 APPLN TOP DAILY PRN for Itching Ubiquinol (Ubiquinol) 100 Mg Cap 100 MG PO DAILY Warfarin Sod (Coumadin) 6 Mg Tab 6 MG PO DAILY Discontinued Medications: Cephalexin Monohydrate (Keflex) 500 Mg Cap 500 MG PO QID, #40 CAP Ciprofloxacin (Ciprofloxacin HCl) 500 Mg Tab 500 MG PO BID Admission Information HPI (per Admitting provider): DATE OF ADMISSION: 07/08/2017 CHIEF COMPLAINT: Right lower extremity cellulitis, failed outpatient treatment. HISTORY OF PRESENT ILLNESS: An 89-year-old male with past medical history significant for hypertension, sensorineural hearing loss, sleep apnea, hyperlipidemia, CAD status post CABG, presents with right lower extremity cellulitis for last three weeks. The patient says he took three different kinds of antibiotics since last three to four weeks, but it is not working. Yesterday, the erythema has gone up to his thigh, so he came to the ER. He says his leg is slightly warm and swollen, but denies any tenderness. He is able to walk and he also goes to gym couple of times a week and he is doing okay with exercise, but redness is not getting better. He got worried and came to the hospital. Denies any fever, chills. Denies any headaches. No blurred vision. No ear drainage. No nasal drainage. No sore throat. No difficulty swallowing. No chest pain. No shortness of breath. No cough. No nausea. No vomiting. No abdominal pain. Normal bowel and bladder movements. No blood in the urine. No blood in the stools. No black stools. No rash anywhere else. Sleep is okay. Ambulates without any help. Vision is okay and uses hearing aids. Currently, resting comfortable and hemodynamically stable. Physical Exam (per Admitting): GENERAL: The patient is of moderate build, not in distress. VITAL SIGNS: Temperature 36.3, pulse 64, respiratory rate 16, blood pressure 129/76, oxygen 94% room air. HEENT: No pallor. No icterus. Pupils equal, round, reactive to light. NECK: No JVD, no neck masses, no carotid bruits. CARDIOVASCULAR: S1, S2 heard, regular rate and rhythm, no murmur, no gallop. RESPIRATORY SYSTEM: Normal AP diameter. No accessory muscle use. No wheezing, no crackles. ABDOMEN: Soft, bowel sounds present. Nontender. No distention. CENTRAL NERVOUS SYSTEM: Cranial nerves II-XII are grossly intact. Nonfocal. EXTREMITIES: Right lower extremity, slightly swollen, erythematous and warm on palpation. Bilateral lower extremity pedal edema present. Hospital Course 89-year-old male with history of coronary artery disease, chronic CHF Presenting with right lower extremity 3 weeks RIGHT LOWER EXTREMITY CELLULITIS Present for the past 3 weeks prior to admission Failed outpatient oral antibiotic regimen including Cipro, cephalexin, doxycycline Started on vancomycin and Zosyn Improving gradually Blood cultures negative Given 4 days of IV vancomycin and Zosyn ID service consulted-Dr. Nadia Gill, recommend outpatient regimen Levaquin 500 mg daily and doxycycline 100 mg twice a day 10 days Follow-up with primary care physician in 3-5 days THROMBOCYTOPENIA Platelet levels noted to be in the low 100s Baseline normal Possibly from ongoing infection Repeat CBC on follow-up with primary care doctor in 3-5 days History of coronary artery disease status post coronary artery bypass surgery. No cardiac symptoms continue his statin, not on aspirin or beta blockers. History of chronic systolic and diastolic heart failure. No signs of overt volume overload History of atrial fibrillation. - Rate under control. - On Coumadin - INR 2.0 CKD stage 3 baseline cr 1.6 to 1.8 Disposition Discharge to home Follow up with primary care doctor in 3-5 days Total time spent on discharge = 30 MINUTES This includes examination of the patient, discharge planning, medication reconciliation, and communication with other providers. Discharge Instructions Discharge Instructions Date of Service Jul 11, 2017. Admission Reason for Admission: Cellulitis Discharge Discharge Diagnosis / Problem: RIGHT LOWER LEG CELLULITIS Discharge Goals Goal(s): Diagnostic testing, Therapeutic intervention Activity Recommendations Activity Limitations: as noted below (No heavy exertion until reevaluated by primary care physician.) Lifting Limitations: until after follow-up appointment Exercise/Sports Limitations: until after follow-up appointment . Instructions / Follow-Up Instructions / Follow-Up Please review your new medication list and follow instructions closely. You will have to finish 10 days of oral antibiotics which includes Levaquin 500 mg by mouth daily and doxycycline 100 mg by mouth twice a day. Include yogurt in your diet daily while on antibiotics and at least one week after finishing antibiotic course. Ensure adequate daily fluid intake. Call your primary care doctor or return to ER if increasing symptoms, increasing leg swelling/redness/pain, pain on the knee/ankle/feet, fever/chills , diarrhea. Follow up with her primary care doctor in 3-5 days. When you make the appointment, request the office to obtain the discharge summary from [facility] prior to to your visit. Current Hospital Diet Patient's current hospital diet: AHA Diet (Heart Healthy) Discharge Diet Recommended Diet: AHA Diet (Heart Healthy) Pending Studies Studies pending at discharge: yes List of pending studies: repeat Bloodwork c/o your primary care physician Laboratory Results Hemoglobin A1c Test 06/11/17 13:04 Range/Units Estimated Average Glucose 114 mg/dl Hemoglobin A1c 5.6 4.5-5.6 % Lipid Panel Test 06/11/17 13:04 Range/Units Triglycerides Level 53 0-150 mg/dl Cholesterol Level 102 0-200 mg/dl HDL Cholesterol 44 mg/dl Cholesterol/HDL Ratio 2.3 LDL Cholesterol, Calculated 47 mg/dl Medical Emergencies . Who to Call and When: Medical Emergencies: If at any time you feel your situation is an emergency, please call 911 immediately. . Non-Emergent Contact Non-Emergency issues call your: Primary Care Provider Call Non-Emergent contact if: you have a fever, your pain is not controlled, your pain is worsening, you have any medication questions . . "Provider Documentation" section prepared by Owen Yuan. .
[2017-07-11] MEDS ORDERED: VANCOMYCIN TROUGH ONE (22:30)
== END 2017-07-11 13:34 | disposition home or self-care (01) | DRG 603 ==
LOC: C.EDB 12:06 → C.MS4W 16:31 → ENRESERV 16:57
PROVIDERS: ADMIT Internal Medicine; ATTEND Internal Medicine
DX: L03.115 Cellulitis of right lower limb (principal); I13.0 Hypertensive heart and chronic kidney disease with heart failure and stage 1 through stage 4 chronic kidney disease, or unspecified chronic kidney disease; I50.42 Chronic combined systolic (congestive) and diastolic (congestive) heart failure; N18.3 Chronic kidney disease, stage 3 (moderate); E78.5 Hyperlipidemia, unspecified; I25.10 Atherosclerotic heart disease of native coronary artery without angina pectoris; I48.91 Unspecified atrial fibrillation; D69.6 Thrombocytopenia, unspecified; G47.30 Sleep apnea, unspecified; Z79.01 Long term (current) use of anticoagulants; Z79.2 Long term (current) use of antibiotics; Z79.899 Other long term (current) drug therapy; Z95.1 Presence of aortocoronary bypass graft; Z88.2 Allergy status to sulfonamides; Z88.8 Allergy status to other drugs, medicaments and biological substances

== ENCOUNTER 2017-07-13 11:43 | Emergency (ER) | payer BC ==
[~2017-07-13] VITALS: Ht 182.9 cm; Wt 68.1 kg
[~2017-07-13 11:43] MED LIST changes: -CEPH500C PO; +DOXY100C41 PO; +LEVO1TAB34 PO
[2017-07-13 11:49] VITALS: TEMP 36.3; Ht 182.9 cm; Wt 68.1 kg
[2017-07-13 13:08] LABS: BASO % 0.1 %; BASO ABS # 0.01 K/uL (0-0.2); EOS % 2.3 %; EOS ABS # 0.16 K/uL (0-0.5); HEMATOCRIT 35.4 % (42-52); HEMOGLOBIN 11.9 g/dL (14.0-18.0); IG# 0.01 K/uL (0.00-0.02); LYMPH % 34.3 %; LYMPH ABS # 2.42 K/uL (1.2-3.4); MEAN CELL VOLUME 95.9 fL (80-100); MEAN CORPUSCULAR HEMOGLOBIN 32.2 pg (25-34); MEAN CORPUSCULAR HGB CONC 33.6 g/dl (32-36); MEAN PLATELET VOLUME 9.9 fL (7.4-10.4); MONO % 11.8 %; MONO ABS # 0.83 K/uL (0.11-0.59); NEUT % 51.4 %; NEUT ABS # 3.62 K/uL (1.4-6.5); PLATELET COUNT 130 K/uL (130-400); RED CELL DISTRIBUTION WIDTH CV 13.8 % (11.5-14.5); RED CELL DISTRIBUTION WIDTH SD 48.1 fL (36.4-46.3); WHITE BLOOD COUNT 7.05 K/uL (4.8-10.8)
[2017-07-13 13:19] LABS: PTT PATIENT 28.8 SECONDS (21.0-31.0)
[2017-07-13 13:27] LABS: CALCIUM 8.6 mg/dl (8.5-10.1); CREATININE 1.81 mg/dl (0.60-1.40); POTASSIUM 3.7 mmol/L (3.5-5.1)
--- NOTE | 2017-07-13 14:10 | DIAGNOSTIC IMAGING REPORT ---
ULTRASOUND R VENOUS DOPP LOWER EXT UNILAT CLINICAL HISTORY: Right leg swelling COMPARISON STUDY: 07/08/2017 FINDINGS: Real-time and color flow Doppler imaging were performed. Flow was seen within the femoral, popliteal and calf veins with no intraluminal thrombus demonstrated. The saphenous vein is patent. IMPRESSION: No evidence of right lower extremity DVT. Electronically signed by: Jared Abel M.D. 07/13/2017 2:09 PM Dictated Date/Time: 07/13/2017 2:08 PM
[2017-07-13 16:17] VITALS: BP 120/72; PULSE 82; O2SAT 97
--- NOTE | 2017-07-13 19:43 | EMERGENCY ROOM VISIT NOTE ---
History Report prepared by Nabeel: Matheus Sherwood Under the Supervision of: Dr. Robert Espinal M.D. First contact with patient: 12:10 Chief Complaint: LEG PAIN,LEG INJURY Stated Complaint: SWOLLEN RIGHT LEG, JUST DISCHARGED WED History of Present Illness The patient is a 89 year old male who presents to the Emergency Room with complaints of constant right leg swelling beginning last night. The patient's swelling is worse around his knee. He has been having problems with an infection of his right lower extremity for the past month. He has been on nine antibiotics in the past month. The patient was admitted to the hospital for his symptoms earlier this week and was discharged two days ago on Levaquin and Doxycycline. He states that he developed swelling overnight last night. He states that the redness of his leg has not changed. The patient also complains of mild pain to his right lower extremity. He states that he has noticed some redness to his bilateral groin as well. He states "I feel completely fine, my leg just isn't getting any better". The patient denies fevers, vomiting, weakness, chest pain, or SOB. He notes that he went to the gym yesterday for one hour for an intense work-out. He is on Warfarin. Source of History: patient Onset: Last night Position: leg (right (worse at the knee)) Quality: other (swelling) Timing: constant Associated Symptoms: No fevers, No chest pain, No SOB, No vomiting, No weakness Note: Positive: right leg pain. Review of Systems See HPI for pertinent positives & negatives. A total of 10 systems reviewed and were otherwise negative. 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 Family History FH: asthma FH: lung disease Social History Smoking Status: Never Smoker Alcohol Use: none Drug Use: none Marital Status: Housing Status: lives with significant other Occupation Status: retired Current/Historical Medications Scheduled Acetaminophen (Tylenol), 500-650 MG PO PRN B-Complex W/ Folic Acid (Super B Complex Maxi), 1 TAB PO DAILY Bimatoprost (Lumigan), 1 DROP OPB HS Calcium Citrate-Vitamin D (Citracal + D3 Maximum), 600 MG PO DAILY Cholecalciferol (Vitamin D3), 1,000 UNITS PO DAILY Doxycycline (Monohydrate) (Monodox), 100 MG PO BID Fluticasone Propionate (Nasal) (Flonase Allergy Relief), 2 SPRAY LISA HS Irbesartan (Avapro), 1 TAB PO DAILY Levofloxacin (Levaquin), 500 MG PO DAILY Magnesium Oxide (Mg Supplement (Magnesium), 500 MG PO DAILY Potassium Ext Rel (Klor-Con), 20-40 MEQ PO UD Simvastatin (Zocor), 20 MG PO QAM Ubiquinol (Ubiquinol), 100 MG PO DAILY Warfarin Sod (Coumadin), 6 MG PO DAILY Scheduled PRN Furosemide (Lasix), 40 MG PO DAILY PRN for fluid retention Triamcinolone Acet (Triamcinolone Acetonide), 1 APPLN TOP DAILY PRN for Itching Allergies Coded Allergies: Rofecoxib (Verified Allergy, Severe, hyperventalation, 07/08/17) Prednisone (Verified Allergy, Unknown, unknown, 07/08/17) Sulfa Drugs (Verified Adverse Reaction, Unknown, FACE DISTORTION 35 YRS AGO, 07/08/17) Physical Exam Vital Signs Date Time Temp Pulse Resp B/P (MAP) Pulse Ox O2 Delivery O2 Flow Rate FiO2 07/13/17 16:17 82 14 120/72 97 07/13/17 14:30 75 15 120/72 95 Room Air 07/13/17 13:30 73 15 119/73 97 Room Air 07/13/17 11:49 36.3 77 17 126/74 99 Room Air Physical Exam Constitutional: Vital signs reviewed. Eyes: Pupils are equal round reactive to light. Conjunctiva are noninjected. ENT: Pharynx is clear without erythema or exudate. Mucous membranes are moist. Neck supple without meningeal signs. Respiratory: Clear to auscultation bilaterally. Breath sounds are equal bilaterally. Cardiovascular: Regular rate and rhythm. No rubs or gallops. GI: Soft, nondistended and nontender. Bowel sounds are present. Musculoskeletal: Right leg pitting edema above the right knee. No significant tenderness. Mild erythema below the knee not extending past previous ink elias. Normal pulse distally. Integumentary: No cyanosis. Tinea Cruris noted. Neurological: The patient is awake and alert. No focal deficits. Psychiatric: Normal affect. Medical Decision & Procedures ER Provider Diagnostic Interpretation: Radiology results as stated below per my review and the radiologist's interpretation: ULTRASOUND R VENOUS DOPP LOWER EXT UNILAT FINDINGS: Real-time and color flow Doppler imaging were performed. Flow was seen within the femoral, popliteal and calf veins with no intraluminal thrombus demonstrated. The saphenous vein is patent. IMPRESSION: No evidence of right lower extremity DVT. Electronically signed by: Jared Abel M.D. 07/13/2017 2:09 PM Laboratory Results 07/13/17 12:55 Red Blood Count 3.69, Mean Corpuscular Volume 95.9, Mean Corpuscular Hemoglobin 32.2, Mean Corpuscular Hemoglobin Concent 33.6, Mean Platelet Volume 9.9, Neutrophils (%) (Auto) 51.4, Lymphocytes (%) (Auto) 34.3, Monocytes (%) (Auto) 11.8, Eosinophils (%) (Auto) 2.3, Basophils (%) (Auto) 0.1, Neutrophils # (Auto ) 3.62, Lymphocytes # (Auto) 2.42, Monocytes # (Auto) 0.83, Eosinophils # (Auto ) 0.16, Basophils # (Auto) 0.01 07/13/17 12:55 Test 07/13/17 12:55 White Blood Count 7.05 K/uL (4.8-10.8) Red Blood Count 3.69 M/uL (4.7-6.1) Hemoglobin 11.9 g/dL (14.0-18.0) Hematocrit 35.4 % (42-52) Mean Corpuscular Volume 95.9 fL (80-100) Mean Corpuscular Hemoglobin 32.2 pg (25-34) Mean Corpuscular Hemoglobin Concent 33.6 g/dl (32-36) Platelet Count 130 K/uL (130-400) Mean Platelet Volume 9.9 fL (7.4-10.4) Neutrophils (%) (Auto) 51.4 % Lymphocytes (%) (Auto) 34.3 % Monocytes (%) (Auto) 11.8 % Eosinophils (%) (Auto) 2.3 % Basophils (%) (Auto) 0.1 % Neutrophils # (Auto) 3.62 K/uL (1.4-6.5) Lymphocytes # (Auto) 2.42 K/uL (1.2-3.4) Monocytes # (Auto) 0.83 K/uL (0.11-0.59) Eosinophils # (Auto) 0.16 K/uL (0-0.5) Basophils # (Auto) 0.01 K/uL (0-0.2) RDW Standard Deviation 48.1 fL (36.4-46.3) RDW Coefficient of Variation 13.8 % (11.5-14.5) Immature Granulocyte % (Auto) 0.1 % Immature Granulocyte # (Auto) 0.01 K/uL (0.00-0.02) Prothrombin Time 20.5 SECONDS (9.0-12.0) Prothromb Time International Ratio 2.0 (0.9-1.1) Activated Partial Thromboplast Time 28.8 SECONDS (21.0-31.0) Partial Thromboplastin Ratio 1.1 Anion Gap 6.0 mmol/L (3-11) Est Creatinine Clear Calc Drug Dose 26.7 ml/min Estimated GFR () 37.6 Estimated GFR (Non- 32.4 BUN/Creatinine Ratio 13.9 (10-20) Calcium Level 8.6 mg/dl (8.5-10.1) Pro-B-Type Natriuretic Peptide 1089 pg/ml (0-1800) Laboratory results as reviewed by me. ED Course 1213: The patient was evaluated in room B6. A complete history and physical exam was performed. 1457: I updated the patient on his test results. I explained to him that we are awaiting a return call from infectious disease. 1555: Upon reevaluation, the patient would like to go home. He does not want to wait for Dr. Gill, and feels that his symptoms may improve if he gives it more time. I discussed danis's findings with him. He verbalized agreement of the treatment plan. The patient agreed that he will cut out exercise for now. He was discharged home. Medical Decision This is an 89-year-old male who presents with swelling and redness to his leg. Differential diagnosis includes edema, cellulitis, hematoma, DVT, subtherapeutic INR. I did perform a limited focused review of portions of the patient's old chart on the electronic medical record. The patient was discharged on July 11 for RLE cellulitis. He had a Doppler which showed no signs of DVT. He was discharged on Levaquin and Doxycycline. Prior to admission , he was on three different antibiotics for four weeks with nothing helping his symptoms. Cultures show no growth. I did evaluate the patient as noted above. The patient has been dealing with cellulitis to his leg for some time. He has been on 9 different antibiotics and is currently on 2 antibiotics including Levaquin and doxycycline. He states he just started the Levaquin yesterday. He is here today because he noticed increased swelling to the leg without an increase in the redness or any significant pain. He denies any chest pain or shortness of breath. He has been taking his Coumadin. He does state he has been exercising heavily and not keeping the leg elevated. The patient also has noted some rash in his groin. He does not have cellulitis in his groin. He has tinea cruris. I did advise him to use antifungal creams. IV access was established. I did order and review the patient's blood work as noted in the electronic medical record. His INR is therapeutic. I did order a Doppler ultrasound of the right leg. I did review the images myself as well as the radiology report as described above. There is no evidence of DVT. I did discuss the test results with the patient. I did feel that the patient probably overdid it with the exercise and recommended that he hold off on exercising as well as keep the leg elevated. I did attempt to call Dr. Gill of infectious disease but she was unavailable. He did not wish to wait any longer and so he was discharged home. Stable continue using his antibiotics as prescribed. He will follow with his doctor next week. He was given return instructions as outlined below. Medication Reconcilliation Current Medication List: was personally reviewed by me Blood Pressure Screening Patient's blood pressure: Normal blood pressure Blood pressure disposition: Did not require urgent referral Impression Primary Impression: Edema of right lower extremity Additional Impressions: Cellulitis of right leg Tinea cruris Anticoagulated on Coumadin Scribe Attestation The scribe's documentation has been prepared under my direct and personally reviewed by me in its entirety. I confirm that the note above accurately reflects all work, treatment, procedures, and medical decision making performed by me. Departure Information Dispostion Home / Self-Care Referrals Cyril Hardin M.D. (PCP) Forms HOME CARE DOCUMENTATION FORM, IMPORTANT VISIT INFORMATION Patient Instructions Cellulitis Dc, [facility] Additional Instructions You have been examined and treated today on an emergency basis only. This is not a substitute for, or an effort to provide, complete comprehensive medical care. It is impossible to recognize and treat all injuries or illnesses in a single emergency department visit. It is therefore important that you follow up closely with your physician on Sunday. Call as soon as possible for an appointment. Return for worsening symptoms or if you develop fever, vomiting, chest pain, shortness of breath or any other concerning symptoms. Problem Qualifiers
== END 2017-07-13 16:18 | disposition home or self-care (01) ==
LOC: C.EDB 11:45
DX: R60.0 Localized edema (principal); L03.115 Cellulitis of right lower limb; B35.6 Tinea cruris; Z79.01 Long term (current) use of anticoagulants; Z51.81 Encounter for therapeutic drug level monitoring; I48.91 Unspecified atrial fibrillation; N18.9 Chronic kidney disease, unspecified; Z79.899 Other long term (current) drug therapy; Z88.8 Allergy status to other drugs, medicaments and biological substances; Z88.2 Allergy status to sulfonamides